=== PATIENT | female | born 1970 | race Caucasian/White ===

== ENCOUNTER 2019-03-10 16:16 | Observation (INO) ==
[2019-03-10 17:10] LABS: Basophils % 0.3 %; Eosinophils # 0.2 K/mcL (0.0-0.6); Eosinophils % 3.2 %; Hematocrit 18.6 % (35.3-44.9); Hemoglobin 6.2 g/dL (11.5-15.4); Immature Granulocytes % 0.6 % (0-4); Lymphocytes # 0.6 K/mcL (0.6-4.6); Lymphocytes % 8.6 %; Mean Corpuscular HGB Conc 33.3 g/dL (31.6-35.5); Mean Platelet Volume 9.7 fL (9.4-12.4); Monocytes # 0.5 K/mcL (0.0-1.3); Monocytes % 6.9 %; Neutrophils # 5.6 K/mcL (1.6-8.9); Platelet Count 130 K/mcL (140-400); Red Blood Count 1.59 M/mcL (3.82-4.97); Red Cell Distribution Width 15.9 % (11.5-14.5); Segmented Neutrophils % 80.4 %; White Blood Count 6.9 K/mcL (4.3-11.1)
[2019-03-10 17:29] LABS: Calcium 8.6 mg/dL (8.6-10.3); Potassium 3.3 mEq/L (3.5-5.1)
[2019-03-10 17:35] LABS: Macrocytosis Present (Not Present)
[2019-03-10 17:36] LABS: Platelet Estimate Slight Decrease (Normal)
[2019-03-10] MEDS ORDERED: 0.9 % Sodium Chloride 250 ML ONE (18:31)
[2019-03-10] MEDS ORDERED: Perit. Dialysis with Dex 2.5 % 12,000 ML PERITONEAL ONE (19:00)
[2019-03-10] MEDS ORDERED: Perit. Dialysis with Dex 2.5 % 6,000 ML PERITONEAL SCH (20:00)
[2019-03-11] MEDS ORDERED: Naloxone 0.4 MG/ML INJ IVP PRN (00:51)
[2019-03-11] MEDS ORDERED: Dextrose Gel 15 GM/37.5 ML TUBE PO PRN ×2 (01:01)
[2019-03-11] MEDS ORDERED: D5% in Water 1,000 ML IVC PRN (01:01)
[2019-03-11] MEDS ORDERED: *HR* Dextrose 50 % in Water (Syg) 50 ML SYRINGE IVP PRN (01:01)
[2019-03-11] MEDS ORDERED: Melatonin 3 MG TABLET PO PRN (01:14)
[2019-03-11 01:34] LABS: Hematocrit 20.9 % (35.3-44.9); Hemoglobin 7.1 g/dL (11.5-15.4); Mean Corpuscular Volume 108.9 fL (83.0-100.0); Mean Platelet Volume 9.4 fL (9.4-12.4); Platelet Count 128 K/mcL (140-400); Red Blood Count 1.92 M/mcL (3.82-4.97); Red Cell Distribution Width 22.5 % (11.5-14.5); White Blood Count 6.6 K/mcL (4.3-11.1)
[2019-03-11 03:03] LABS: Folate > 22.3 ng/mL (3.0-16.0); Vitamin B12 743 pg/mL (250-1100)
[2019-03-11 06:36] LABS: Hematocrit 24.5 % (35.3-44.9); Hemoglobin 8.2 g/dL (11.5-15.4); Mean Corpuscular HGB Conc 33.5 g/dL (31.6-35.5); Mean Corpuscular Hemoglobin 37.1 pg (28.0-33.3); Mean Corpuscular Volume 110.9 fL (83.0-100.0); Mean Platelet Volume 9.9 fL (9.4-12.4); Platelet Count 171 K/mcL (140-400); Red Blood Count 2.21 M/mcL (3.82-4.97); Red Cell Distribution Width 22.6 % (11.5-14.5); White Blood Count 9.4 K/mcL (4.3-11.1)
[2019-03-11 07:03] LABS: Albumin 3.8 g/dL (3.5-5.7); Albumin/Globulin Ratio 1.2 (1.1-2.2); Bilirubin,Total 0.5 mg/dL (0.3-1.0); Globulin 3.3 g/dL (2.4-3.5); Phosphorous 9.2 mg/dL (2.7-4.5); Potassium 3.5 mEq/L (3.5-5.1); Total Protein 7.1 g/dL (6.4-8.9)
[2019-03-11] MEDS ORDERED: Gentamicin Oint 15 GM TUBE TP SCH (09:00)
[2019-03-11] MEDS: Insulin LISPRO 300 UNITS/3 ML VIAL SQ SCH ×2 (09:05→12:57)
[2019-03-11 11:06] LABS: Retculocyte # 0.06 M/mcL (0.05-0.10); Reticulocyte % 3.1 % (1.6-2.8)
[2019-03-11 11:07] LABS: Immature Reticulocyte % 28.5 % (11.0-38.0)
[2019-03-11 11:19] LABS: % Iron Saturation 31 % (15-50); Iron 75 mcg/dL (50-170); Transferrin 172 mg/dL (203-362)
[2019-03-11 11:36] LABS: Ferritin 419 ng/mL (10-120)
[2019-03-11 16:02] VITALS: BP 160/90
[2019-03-11] MEDS ORDERED: Insulin LISPRO 300 UNITS/3 ML VIAL SQ SCH (21:00)
[2019-03-11] MEDS ORDERED: Insulin DETEMIR 100 UNIT/ML X5UNITS SQ SCH (21:00)
== END 2019-03-11 16:55 | disposition home or self-care (01) ==
LOC: EMEROOARM 16:16 → 2ANU 16:16
PROVIDERS: ADMIT Family Medicine; ATTEND Family Medicine

== ENCOUNTER 2019-05-24 16:36 | Inpatient (IN) ==
[2019-05-24] MEDS ORDERED: *HR* FentaNYL (PF) 100 MCG/2 ML VIAL IVP ONE ×3 (17:41→22:35)
[2019-05-24] MEDS ORDERED: Ondansetron 4 MG/2 ML VIAL IVP ONE ×2 (17:42→20:43)
[2019-05-24 17:55] LABS: Basophils % 0.3 %; Eosinophils # 0.1 K/mcL (0.0-0.6); Eosinophils % 1.1 %; Hematocrit 22.4 % (35.3-44.9); Hemoglobin 7.7 g/dL (11.5-15.4); Immature Granulocytes % 0.5 % (0-4); Lymphocytes # 0.7 K/mcL (0.6-4.6); Mean Corpuscular HGB Conc 34.4 g/dL (31.6-35.5); Mean Corpuscular Hemoglobin 36.7 pg (28.0-33.3); Monocytes # 0.5 K/mcL (0.0-1.3); Monocytes % 6.3 %; Neutrophils # 6.2 K/mcL (1.6-8.9); Platelet Count 158 K/mcL (140-400); Red Cell Distribution Width 16.2 % (11.5-14.5); Segmented Neutrophils % 82.8 %; White Blood Count 7.4 K/mcL (4.3-11.1)
[2019-05-24 17:56] LABS: Mean Corpuscular Volume 106.7 fL (83.0-100.0)
[2019-05-24 18:17] LABS: Calcium 7.8 mg/dL (8.6-10.3); Potassium 2.5 mEq/L (3.5-5.1)
[2019-05-24] MEDS ORDERED: Potassium Chloride Elixir 20 MEQ/15 ML UDC PO ONE ×2 (19:15→20:42)
[2019-05-24 19:59] LABS: Magnesium 1.7 mg/dL (1.6-2.6); Troponin I 0.08 ng/mL (< 0.04)
[2019-05-24] MEDS ORDERED: *HR* FentaNYL (PF) 100 MCG/2 ML VIAL ONE (20:35)
[2019-05-24] MEDS ORDERED: Potassium Chloride 40 MEQ, Lidocaine 1% 2 ML in 0.9 % Sodium Chloride 500 ML IVPB ONE (20:43)
[2019-05-24 21:47] LABS: Albumin 3.5 g/dL (3.5-5.7); Bilirubin,Direct 0.1 mg/dL (0.0-0.2); Bilirubin,Indirect 0.2 mg/dL (0.0-1.0); Bilirubin,Total 0.3 mg/dL (0.3-1.0); Globulin 3.6 g/dL (2.4-3.5); Total Protein 7.1 g/dL (6.4-8.9)
[2019-05-25] MEDS ORDERED: Naloxone 0.4 MG/ML INJ IVP PRN (00:09)
[2019-05-25] MEDS ORDERED: D5% in Water 1,000 ML IVC PRN (00:12)
[2019-05-25] MEDS ORDERED: Dextrose Gel 15 GM/37.5 ML TUBE PO PRN ×2 (00:12)
[2019-05-25] MEDS ORDERED: *HR* Dextrose 50 % in Water (Syg) 50 ML SYRINGE IVP PRN (00:12)
[2019-05-25] MEDS ORDERED: Acetaminophen 325 MG TABLET PO PRN (00:13)
[2019-05-25] MEDS ORDERED: 0.9 % Sodium Chloride 1,000 ML IVC SCH (00:15)
[2019-05-25] MEDS: Ondansetron ODT 4 MG TAB.RAPDIS SL PRN (00:38)
[2019-05-25 04:49] LABS: INR 1.3; Prothrombin Time 15.2 Seconds (9.4-12.1)
[2019-05-25 04:51] LABS: Basophils % 0.3 %; Eosinophils # 0.1 K/mcL (0.0-0.6); Eosinophils % 0.8 %; Hematocrit 21.3 % (35.3-44.9); Hemoglobin 6.9 g/dL (11.5-15.4); Immature Granulocytes % 0.4 % (0-4); Lymphocytes # 0.6 K/mcL (0.6-4.6); Lymphocytes % 7.7 %; Mean Corpuscular HGB Conc 32.4 g/dL (31.6-35.5); Mean Corpuscular Hemoglobin 35.2 pg (28.0-33.3); Mean Corpuscular Volume 108.7 fL (83.0-100.0); Mean Platelet Volume 10.1 fL (9.4-12.4); Monocytes # 0.5 K/mcL (0.0-1.3); Monocytes % 6.8 %; Neutrophils # 6.2 K/mcL (1.6-8.9); Platelet Count 110 K/mcL (140-400); Red Blood Count 1.96 M/mcL (3.82-4.97); Red Cell Distribution Width 18.6 % (11.5-14.5); White Blood Count 7.4 K/mcL (4.3-11.1)
[2019-05-25 05:11] LABS: Calcium 7.4 mg/dL (8.6-10.3); Magnesium 2.1 mg/dL (1.6-2.6); Phosphorous 5.8 mg/dL (2.7-4.5); Potassium 3.3 mEq/L (3.5-5.1)
[2019-05-25] MEDS: Insulin LISPRO 300 UNITS/3 ML VIAL SQ SCH ×3 (06:09→17:25)
[2019-05-25] MEDS ORDERED: 0.9 % Sodium Chloride 250 ML ONE ×2 (06:30→08:25)
[2019-05-25] MEDS ORDERED: Multivit/Ca/Min/Fe/FA 1 TAB TABLET PO SCH (09:00)
[2019-05-25] MEDS ORDERED: Aspirin Enteric Coated 81 MG Tablet PO SCH (09:00)
[2019-05-25] MEDS: Renal Vitamin 1 CAP CAPSULE PO SCH (11:36)
[2019-05-25] MEDS: Acetaminophen 325 MG TABLET PO PRN (14:35)
[2019-05-25] MEDS: Pantoprazole 40 MG VIAL IVP SCH (17:25)
[2019-05-25] MEDS ORDERED: Perit. Dialysis with Dex 1.5 % 12,000 ML PERITONEAL ONE (19:00)
[2019-05-25] MEDS ORDERED: Potassium Chloride Elixir 20 MEQ/15 ML UDC PO ONE (19:26)
[2019-05-25 20:13] LABS: Hematocrit 24.6 % (35.3-44.9); Hemoglobin 8.4 g/dL (11.5-15.4)
[2019-05-26] MEDS: Insulin LISPRO 300 UNITS/3 ML VIAL SQ SCH ×5 (01:58→21:12)
[2019-05-26 04:50] LABS: Hemoglobin 7.6 g/dL (11.5-15.4); Mean Corpuscular Hemoglobin 34.9 pg (28.0-33.3); Mean Corpuscular Volume 105.5 fL (83.0-100.0); Mean Platelet Volume 10.8 fL (9.4-12.4); Platelet Count 126 K/mcL (140-400); Red Blood Count 2.18 M/mcL (3.82-4.97); Red Cell Distribution Width 22.5 % (11.5-14.5); White Blood Count 9.6 K/mcL (4.3-11.1)
[2019-05-26 05:08] LABS: Calcium 7.6 mg/dL (8.6-10.3); Potassium 3.4 mEq/L (3.5-5.1)
[2019-05-26] MEDS: Pantoprazole 40 MG VIAL IVP SCH ×2 (05:53→16:35)
[2019-05-26] MEDS: Gentamicin Oint 15 GM TUBE TP SCH (08:46)
[2019-05-26] MEDS: Renal Vitamin 1 CAP CAPSULE PO SCH (08:46)
[2019-05-26 11:09] LABS: Hematocrit 21.9 % (35.3-44.9); Hemoglobin 7.4 g/dL (11.5-15.4)
[2019-05-26] MEDS ORDERED: 0.9 % Sodium Chloride 250 ML ONE (13:04)
[2019-05-26] MEDS: Acetaminophen 325 MG TABLET PO PRN ×2 (13:15→19:42)
[2019-05-26 17:42] LABS: Hematocrit 25.6 % (35.3-44.9); Hemoglobin 8.9 g/dL (11.5-15.4)
[2019-05-26] MEDS ORDERED: Perit. Dialysis with Dex 1.5 % 12,000 ML PERITONEAL ONE (19:00)
[2019-05-27] MEDS: Acetaminophen 325 MG TABLET PO PRN (05:30)
[2019-05-27] MEDS: Pantoprazole 40 MG VIAL IVP SCH ×2 (05:30→16:57)
[2019-05-27 05:46] LABS: Hematocrit 24.5 % (35.3-44.9); Hemoglobin 8.2 g/dL (11.5-15.4); Immature Platelets 3.3 % (1.1-6.1); Mean Corpuscular HGB Conc 33.5 g/dL (31.6-35.5); Mean Corpuscular Hemoglobin 33.7 pg (28.0-33.3); Mean Corpuscular Volume 100.8 fL (83.0-100.0); Mean Platelet Volume 9.7 fL (9.4-12.4); Red Blood Count 2.43 M/mcL (3.82-4.97); Red Cell Distribution Width 21.2 % (11.5-14.5); White Blood Count 5.6 K/mcL (4.3-11.1)
[2019-05-27 06:11] LABS: Calcium 7.6 mg/dL (8.6-10.3); Potassium 3.6 mEq/L (3.5-5.1)
[2019-05-27] MEDS: Insulin LISPRO 300 UNITS/3 ML VIAL SQ SCH ×4 (07:24→21:42)
[2019-05-27] MEDS: Renal Vitamin 1 CAP CAPSULE PO SCH (08:23)
[2019-05-27] MEDS ORDERED: 0.9 % Sodium Chloride 250 ML IVC ONE (08:49)
[2019-05-27] MEDS: Gentamicin Oint 15 GM TUBE TP SCH (08:53)
[2019-05-27] MEDS ORDERED: 0.9 % Sodium Chloride 1,000 ML IVC SCH (12:00)
[2019-05-27 14:43] LABS: Hemoglobin 8.7 g/dL (11.5-15.4)
[2019-05-27] MEDS ORDERED: Perit. Dialysis with Dex 1.5 % 12,000 ML PERITONEAL ONE (19:00)
[2019-05-27 19:23] LABS: Hematocrit 25.5 % (35.3-44.9); Hemoglobin 8.3 g/dL (11.5-15.4)
[2019-05-27] MEDS: *HR* Promethazine 25 MG/ML VIAL IVP PRN (22:59)
[2019-05-28] MEDS: Acetaminophen 325 MG TABLET PO PRN ×2 (03:43→14:44)
[2019-05-28 04:41] LABS: Hematocrit 21.2 % (35.3-44.9); Hemoglobin 7.1 g/dL (11.5-15.4); Mean Corpuscular HGB Conc 33.5 g/dL (31.6-35.5); Mean Corpuscular Hemoglobin 34.3 pg (28.0-33.3); Mean Corpuscular Volume 102.4 fL (83.0-100.0); Mean Platelet Volume 10.3 fL (9.4-12.4); Platelet Count 131 K/mcL (140-400); Red Blood Count 2.07 M/mcL (3.82-4.97); Red Cell Distribution Width 20.3 % (11.5-14.5); White Blood Count 7.3 K/mcL (4.3-11.1)
[2019-05-28 05:00] LABS: Calcium 6.1 mg/dL (8.6-10.3); Potassium 2.9 mEq/L (3.5-5.1)
[2019-05-28] MEDS: Pantoprazole 40 MG VIAL IVP SCH ×2 (05:08→16:48)
[2019-05-28] MEDS: Renal Vitamin 1 CAP CAPSULE PO SCH (07:27)
[2019-05-28] MEDS: Gentamicin Oint 15 GM TUBE TP SCH (07:27)
[2019-05-28] MEDS ORDERED: Furosemide 20 MG/2 ML VIAL IVP ONE ×2 (07:35→14:42)
[2019-05-28] MEDS ORDERED: 0.9 % Sodium Chloride 250 ML IVC SCH (07:45)
[2019-05-28] MEDS ORDERED: Potassium Chloride Elixir 20 MEQ/15 ML UDC PO SCH (07:45)
[2019-05-28 08:32] LABS: Hemoglobin 8.4 g/dL (11.5-15.4)
[2019-05-28] MEDS: Insulin LISPRO 300 UNITS/3 ML VIAL SQ SCH ×4 (08:49→21:04)
[2019-05-28] MEDS ORDERED: 0.9 % Sodium Chloride 250 ML ONE (11:09)
[2019-05-28] MEDS ORDERED: *HR* Propofol 200 MG/20 ML VIAL IVP ONE (13:08)
[2019-05-28] MEDS ORDERED: Lidocaine -MPF 2% 2 ML VIAL ONE (13:08)
[2019-05-28 15:21] LABS: Hematocrit 28.2 % (35.3-44.9); Hemoglobin 9.5 g/dL (11.5-15.4)
[2019-05-28 21:07] LABS: Hematocrit 27.5 % (35.3-44.9); Hemoglobin 9.4 g/dL (11.5-15.4)
[2019-05-29] MEDS: Pantoprazole 40 MG VIAL IVP SCH ×2 (06:28→17:32)
[2019-05-29] MEDS: Gentamicin Oint 15 GM TUBE TP SCH (07:09)
[2019-05-29] MEDS: Renal Vitamin 1 CAP CAPSULE PO SCH (07:09)
[2019-05-29 07:13] LABS: Immature Reticulocyte % 23.2 % (11.0-38.0); Retculocyte # 0.08 M/mcL (0.05-0.10)
[2019-05-29 07:16] LABS: VBG Ionized Calcium 0.93 mmol/L (1.15-1.35)
[2019-05-29 07:34] LABS: % Iron Saturation 40 % (15-50); Iron 55 mcg/dL (50-170); Transferrin 99 mg/dL (203-362)
[2019-05-29 07:41] LABS: Albumin 2.7 g/dL (3.5-5.7); Calcium 7.6 mg/dL (8.6-10.3); Phosphorous 7.2 mg/dL (2.7-4.5); Potassium 3.8 mEq/L (3.5-5.1)
[2019-05-29] MEDS ORDERED: Calcium Gluconate 1gm/50mL 1 GM/50 ML BAG IVPB ONE (07:42)
[2019-05-29] MEDS: Insulin LISPRO 300 UNITS/3 ML VIAL SQ SCH ×4 (07:49→21:32)
[2019-05-29 07:53] LABS: Ferritin 502 ng/mL (10-120)
[2019-05-29 08:10] LABS: Folate > 22.3 ng/mL (3.0-16.0); Vitamin B12 > 1500 pg/mL (250-1100)
[2019-05-29 08:22] LABS: Hematocrit 30.2 % (35.3-44.9); Hemoglobin 9.6 g/dL (11.5-15.4); Mean Corpuscular HGB Conc 31.8 g/dL (31.6-35.5); Mean Corpuscular Hemoglobin 32.9 pg (28.0-33.3); Mean Corpuscular Volume 103.4 fL (83.0-100.0); Mean Platelet Volume 10.2 fL (9.4-12.4); Platelet Count 106 K/mcL (140-400); Red Blood Count 2.92 M/mcL (3.82-4.97); Red Cell Distribution Width 22.2 % (11.5-14.5); White Blood Count 5.5 K/mcL (4.3-11.1)
[2019-05-29 08:42] LABS: Calcium 7.6 mg/dL (8.6-10.3); Potassium 3.8 mEq/L (3.5-5.1)
[2019-05-30 04:44] LABS: Hematocrit 26.2 % (35.3-44.9); Hemoglobin 8.7 g/dL (11.5-15.4); Mean Corpuscular HGB Conc 33.2 g/dL (31.6-35.5); Mean Corpuscular Hemoglobin 33.2 pg (28.0-33.3); Mean Platelet Volume 9.5 fL (9.4-12.4); Platelet Count 101 K/mcL (140-400); Red Blood Count 2.62 M/mcL (3.82-4.97); Red Cell Distribution Width 21.7 % (11.5-14.5); White Blood Count 4.3 K/mcL (4.3-11.1)
[2019-05-30 05:06] LABS: Albumin 2.5 g/dL (3.5-5.7); Calcium 7.7 mg/dL (8.6-10.3); Phosphorous 7.5 mg/dL (2.7-4.5); Potassium 3.7 mEq/L (3.5-5.1)
[2019-05-30] MEDS: Pantoprazole 40 MG VIAL IVP SCH (06:22)
[2019-05-30] MEDS: Renal Vitamin 1 CAP CAPSULE PO SCH (08:06)
[2019-05-30] MEDS: Insulin LISPRO 300 UNITS/3 ML VIAL SQ SCH ×4 (08:56→23:35)
[2019-05-30] MEDS: Gentamicin Oint 15 GM TUBE TP SCH (08:57)
[2019-05-30] MEDS: Ondansetron ODT 4 MG TAB.RAPDIS SL PRN (12:31)
[2019-05-30] MEDS: Perit. Dialysis with Dex 1.5 % 12,000 ML PERITONEAL ONE ×2 (18:13→18:14)
[2019-05-31 05:13] LABS: Hematocrit 25.3 % (35.3-44.9); Hemoglobin 8.3 g/dL (11.5-15.4); Mean Corpuscular HGB Conc 32.8 g/dL (31.6-35.5); Mean Corpuscular Hemoglobin 33.9 pg (28.0-33.3); Mean Corpuscular Volume 103.3 fL (83.0-100.0); Mean Platelet Volume 10.2 fL (9.4-12.4); Platelet Count 110 K/mcL (140-400); Red Blood Count 2.45 M/mcL (3.82-4.97); Red Cell Distribution Width 21.1 % (11.5-14.5)
[2019-05-31] MEDS: Pantoprazole 40 MG VIAL IVP SCH (05:29)
[2019-05-31 05:34] LABS: Albumin 2.5 g/dL (3.5-5.7); Calcium 7.5 mg/dL (8.6-10.3); Phosphorous 6.6 mg/dL (2.7-4.5); Potassium 3.5 mEq/L (3.5-5.1)
[2019-05-31] MEDS: Insulin LISPRO 300 UNITS/3 ML VIAL SQ SCH ×4 (07:03→23:41)
[2019-05-31] MEDS: Renal Vitamin 1 CAP CAPSULE PO SCH (07:18)
[2019-05-31] MEDS: Gentamicin Oint 15 GM TUBE TP SCH (07:20)
[2019-05-31] MEDS: Ondansetron ODT 4 MG TAB.RAPDIS SL PRN (17:39)
[2019-05-31] MEDS: Perit. Dialysis with Dex 1.5 % 12,000 ML PERITONEAL ONE (18:26)
[2019-05-31] MEDS ORDERED: Perit. Dialysis with Dex 1.5 % 12,000 ML PERITONEAL ONE (19:00)
[2019-06-01] MEDS: Pantoprazole 40 MG VIAL IVP SCH (05:38)
[2019-06-01 06:40] LABS: Albumin 2.7 g/dL (3.5-5.7); Calcium 7.8 mg/dL (8.6-10.3); Phosphorous 6.4 mg/dL (2.7-4.5); Potassium 3.9 mEq/L (3.5-5.1)
[2019-06-01 06:50] LABS: Hematocrit 29.7 % (35.3-44.9); Hemoglobin 9.8 g/dL (11.5-15.4); Mean Corpuscular Hemoglobin 32.9 pg (28.0-33.3); Mean Corpuscular Volume 99.7 fL (83.0-100.0); Mean Platelet Volume 10.9 fL (9.4-12.4); Platelet Count 133 K/mcL (140-400); Red Blood Count 2.98 M/mcL (3.82-4.97); Red Cell Distribution Width 20.7 % (11.5-14.5); White Blood Count 5.8 K/mcL (4.3-11.1)
[2019-06-01] MEDS: Renal Vitamin 1 CAP CAPSULE PO SCH (07:33)
[2019-06-01] MEDS: Insulin LISPRO 300 UNITS/3 ML VIAL SQ SCH ×4 (07:43→20:21)
[2019-06-01] MEDS: Gentamicin Oint 15 GM TUBE TP SCH (08:48)
[2019-06-01] MEDS: *HR* Promethazine 25 MG/ML VIAL IVP PRN (12:03)
[2019-06-01] MEDS: Metoclopramide 10 MG/2 ML VIAL IVP PRN (16:37)
[2019-06-01] MEDS: Ondansetron ODT 4 MG TAB.RAPDIS SL PRN (23:43)
[2019-06-02 05:10] LABS: Basophils % 0.4 %; Eosinophils # 0.1 K/mcL (0.0-0.6); Eosinophils % 2.8 %; Hematocrit 26.5 % (35.3-44.9); Hemoglobin 8.5 g/dL (11.5-15.4); Immature Granulocytes % 0.4 % (0-4); Lymphocytes # 0.7 K/mcL (0.6-4.6); Mean Corpuscular HGB Conc 32.1 g/dL (31.6-35.5); Mean Corpuscular Hemoglobin 33.5 pg (28.0-33.3); Mean Corpuscular Volume 104.3 fL (83.0-100.0); Monocytes # 0.3 K/mcL (0.0-1.3); Monocytes % 5.7 %; Neutrophils # 3.6 K/mcL (1.6-8.9); Platelet Count 123 K/mcL (140-400); Red Blood Count 2.54 M/mcL (3.82-4.97); Red Cell Distribution Width 20.6 % (11.5-14.5); Segmented Neutrophils % 76.7 %; White Blood Count 4.7 K/mcL (4.3-11.1)
[2019-06-02 05:30] LABS: Albumin 2.6 g/dL (3.5-5.7); Calcium 7.7 mg/dL (8.6-10.3); Potassium 3.5 mEq/L (3.5-5.1)
[2019-06-02] MEDS: Pantoprazole 40 MG VIAL IVP SCH (06:02)
[2019-06-02] MEDS: Insulin LISPRO 300 UNITS/3 ML VIAL SQ SCH ×4 (08:27→21:42)
[2019-06-02] MEDS: Gentamicin Oint 15 GM TUBE TP SCH (08:28)
[2019-06-02] MEDS: Renal Vitamin 1 CAP CAPSULE PO SCH (08:28)
[2019-06-02] MEDS: 0.9 % Sodium Chloride 1,000 ML IVC SCH (11:59)
[2019-06-02] MEDS: Ondansetron ODT 4 MG TAB.RAPDIS SL PRN (17:53)
[2019-06-02] MEDS: Metoclopramide 10 MG/2 ML VIAL IVP PRN (19:36)
[2019-06-02] MEDS ORDERED: Ondansetron 4 MG/2 ML VIAL IVP ONE (23:43)
[2019-06-03 05:58] LABS: Basophils % 0.4 %; Eosinophils # 0.2 K/mcL (0.0-0.6); Eosinophils % 3.4 %; Hematocrit 27.3 % (35.3-44.9); Hemoglobin 8.6 g/dL (11.5-15.4); Immature Granulocytes % 0.2 % (0-4); Lymphocytes # 0.5 K/mcL (0.6-4.6); Mean Corpuscular HGB Conc 31.5 g/dL (31.6-35.5); Mean Corpuscular Volume 104.6 fL (83.0-100.0); Mean Platelet Volume 9.6 fL (9.4-12.4); Monocytes # 0.3 K/mcL (0.0-1.3); Monocytes % 6.4 %; Neutrophils # 3.8 K/mcL (1.6-8.9); Platelet Count 113 K/mcL (140-400); Red Blood Count 2.61 M/mcL (3.82-4.97); Red Cell Distribution Width 20.4 % (11.5-14.5); Segmented Neutrophils % 79.6 %; White Blood Count 4.7 K/mcL (4.3-11.1)
[2019-06-03] MEDS: Pantoprazole 40 MG VIAL IVP SCH (06:05)
[2019-06-03 06:19] LABS: Calcium 7.7 mg/dL (8.6-10.3); Magnesium 1.9 mg/dL (1.6-2.6); Phosphorous 6.7 mg/dL (2.7-4.5); Potassium 3.6 mEq/L (3.5-5.1)
[2019-06-03] MEDS: Insulin LISPRO 300 UNITS/3 ML VIAL SQ SCH ×4 (08:16→21:04)
[2019-06-03] MEDS: 0.9 % Sodium Chloride 1,000 ML IVC SCH (08:35)
[2019-06-03] MEDS: Renal Vitamin 1 CAP CAPSULE PO SCH (08:36)
[2019-06-03] MEDS: Gentamicin Oint 15 GM TUBE TP SCH (08:36)
[2019-06-03] MEDS: Ondansetron ODT 4 MG TAB.RAPDIS SL PRN ×2 (14:09→23:03)
[2019-06-03] MEDS: Metoclopramide 10 MG/2 ML VIAL IVP SCH ×2 (17:00→20:59)
[2019-06-03] MEDS ORDERED: Perit. Dialysis with Dex 1.5 % 6,000 ML PERITONEAL ONE (19:00)
[2019-06-03] MEDS ORDERED: Perit. Dialysis with Dex 2.5 % 6,000 ML PERITONEAL ONE (19:00)
[2019-06-04] MEDS: Pantoprazole 40 MG VIAL IVP SCH (06:10)
[2019-06-04] MEDS: Gentamicin Oint 15 GM TUBE TP SCH (07:39)
[2019-06-04] MEDS: Metoclopramide 10 MG/2 ML VIAL IVP SCH ×4 (07:39→21:25)
[2019-06-04] MEDS: Renal Vitamin 1 CAP CAPSULE PO SCH (07:39)
[2019-06-04] MEDS: Insulin LISPRO 300 UNITS/3 ML VIAL SQ SCH ×4 (07:40→21:13)
[2019-06-04 08:50] LABS: Calcium 7.7 mg/dL (8.6-10.3); Magnesium 1.8 mg/dL (1.6-2.6); Phosphorous 5.8 mg/dL (2.7-4.5); Potassium 3.3 mEq/L (3.5-5.1)
[2019-06-04] MEDS: Ondansetron ODT 4 MG TAB.RAPDIS SL PRN (12:00)
[2019-06-04] MEDS ORDERED: E-Z-HD (BARIUM SULF) SUSPENSION PO ONE (15:32)
[2019-06-04] MEDS ORDERED: Perit. Dialysis with Dex 2.5 % 6,000 ML PERITONEAL ONE (19:00)
[2019-06-04] MEDS ORDERED: Perit. Dialysis with Dex 1.5 % 6,000 ML PERITONEAL ONE (19:00)
[2019-06-04] MEDS ORDERED: Scopolamine Patch 1.5 MG PATCH.TD72 TD ONE (20:04)
[2019-06-05] MEDS: Ondansetron ODT 4 MG TAB.RAPDIS SL PRN
[2019-06-05 02:38] LABS: Hematocrit 25.4 % (35.3-44.9); Mean Corpuscular HGB Conc 31.5 g/dL (31.6-35.5); Mean Corpuscular Hemoglobin 32.9 pg (28.0-33.3); Mean Corpuscular Volume 104.5 fL (83.0-100.0); Mean Platelet Volume 10.1 fL (9.4-12.4); Platelet Count 108 K/mcL (140-400); Red Blood Count 2.43 M/mcL (3.82-4.97); Red Cell Distribution Width 20.5 % (11.5-14.5); White Blood Count 4.3 K/mcL (4.3-11.1)
[2019-06-05 02:54] LABS: Calcium 7.6 mg/dL (8.6-10.3)
[2019-06-05] MEDS: Pantoprazole 40 MG VIAL IVP SCH (06:47)
[2019-06-05] MEDS: Insulin LISPRO 300 UNITS/3 ML VIAL SQ SCH (08:24)
[2019-06-05] MEDS: Renal Vitamin 1 CAP CAPSULE PO SCH (08:26)
[2019-06-05] MEDS: Metoclopramide 10 MG/2 ML VIAL IVP SCH (08:26)
[2019-06-05] MEDS: Gentamicin Oint 15 GM TUBE TP SCH (08:26)
[2019-06-05] MEDS ORDERED: Furosemide 40 MG TABLET PO SCH (09:00)
[2019-06-05 11:49] VITALS: BP 148/83
== END 2019-06-05 13:00 | disposition home or self-care (01) | DRG 438 ==
LOC: 2ANU 16:36 → EMEROOARM 16:36 → SUATTDRO 22:18 → 2ANU 23:07 → SUATTDRO 05-25 12:53
PROVIDERS: ADMIT Internal Medicine; ATTEND Internal Medicine
PROC: ENDOEBX (2019-05-28 13:00)

== ENCOUNTER 2019-06-15 19:07 | Inpatient (IN) ==
[2019-06-15] MEDS ORDERED: Isovue-370 500 ML BOTTLE IVP ONE (19:35)
[2019-06-15] MEDS ORDERED: *HR* FentaNYL (PF) 100 MCG/2 ML VIAL IVP ONE ×2 (19:52→21:53)
[2019-06-15] MEDS ORDERED: Ondansetron 4 MG/2 ML VIAL IVP STA (19:52)
[2019-06-15 19:56] LABS: Basophils % 0.2 %; Eosinophils # 0.2 K/mcL (0.0-0.6); Eosinophils % 3.4 %; Hematocrit 21.2 % (35.3-44.9); Hemoglobin 6.9 g/dL (11.5-15.4); Immature Granulocytes % 0.5 % (0-4); Lymphocytes # 0.5 K/mcL (0.6-4.6); Lymphocytes % 9.1 %; Mean Corpuscular HGB Conc 32.5 g/dL (31.6-35.5); Mean Corpuscular Hemoglobin 33.8 pg (28.0-33.3); Mean Corpuscular Volume 103.9 fL (83.0-100.0); Mean Platelet Volume 10.9 fL (9.4-12.4); Monocytes # 0.2 K/mcL (0.0-1.3); Monocytes % 3.6 %; Neutrophils # 4.7 K/mcL (1.6-8.9); Platelet Count 116 K/mcL (140-400); Red Blood Count 2.04 M/mcL (3.82-4.97); Segmented Neutrophils % 83.2 %; White Blood Count 5.6 K/mcL (4.3-11.1)
[2019-06-15] MEDS ORDERED: 0.9 % Sodium Chloride 1,000 ML ONE (20:03)
[2019-06-15 20:14] LABS: Albumin 2.9 g/dL (3.5-5.7); Albumin/Globulin Ratio 0.9 (1.1-2.2); Bilirubin,Direct 0.2 mg/dL (0.0-0.2); Bilirubin,Indirect 0.6 mg/dL (0.0-1.0); Bilirubin,Total 0.8 mg/dL (0.3-1.0); Calcium 7.9 mg/dL (8.6-10.3); Globulin 3.2 g/dL (2.4-3.5); Magnesium 1.7 mg/dL (1.6-2.6); Potassium 3.7 mEq/L (3.5-5.1); Total Protein 6.1 g/dL (6.4-8.9)
[2019-06-15] MEDS ORDERED: Ondansetron 4 MG/2 ML VIAL IVP ONE (21:53)
[2019-06-15] MEDS ORDERED: 0.9 % Sodium Chloride 1,000 ML IVC SCH (22:15)
[2019-06-15] MEDS ORDERED: Dextrose Gel 15 GM/37.5 ML TUBE PO PRN ×2 (23:46)
[2019-06-15] MEDS ORDERED: Naloxone 0.4 MG/ML INJ IVP PRN (23:46)
[2019-06-15] MEDS ORDERED: D5% in Water 1,000 ML IVC PRN (23:46)
[2019-06-15] MEDS ORDERED: *HR* Dextrose 50 % in Water (Syg) 50 ML SYRINGE IVP PRN (23:46)
[2019-06-16] MEDS: Insulin LISPRO 300 UNITS/3 ML VIAL SQ SCH ×4 (01:25→19:21)
[2019-06-16] MEDS ORDERED: 0.9 % Sodium Chloride 250 ML ONE (01:31)
[2019-06-16] MEDS: Ondansetron 4 MG/2 ML VIAL IVP PRN (05:50)
[2019-06-16 05:53] LABS: Hematocrit 23.4 % (35.3-44.9); Mean Platelet Volume 11.1 fL (9.4-12.4); Monocytes % 6.2 %
[2019-06-16 05:55] LABS: Basophils % 0.2 %; Eosinophils # 0.2 K/mcL (0.0-0.6); Eosinophils % 4.9 %; Hemoglobin 7.7 g/dL (11.5-15.4); Immature Granulocytes % 0.6 % (0-4); Immature Platelets 4.4 % (1.1-6.1); Lymphocytes # 0.7 K/mcL (0.6-4.6); Lymphocytes % 13.4 %; Mean Corpuscular HGB Conc 32.9 g/dL (31.6-35.5); Mean Corpuscular Hemoglobin 32.4 pg (28.0-33.3); Mean Corpuscular Volume 98.3 fL (83.0-100.0); Monocytes # 0.3 K/mcL (0.0-1.3); Nucleated Red Blood Cells 0.4 /100 WBC (0); Red Blood Count 2.38 M/mcL (3.82-4.97); Red Cell Distribution Width 21.8 % (11.5-14.5); Segmented Neutrophils % 74.7 %; White Blood Count 4.9 K/mcL (4.3-11.1)
[2019-06-16 05:56] LABS: INR 1.4; Prothrombin Time 16.3 Seconds (9.4-12.1)
[2019-06-16 06:08] LABS: Calcium 7.6 mg/dL (8.6-10.3); Phosphorous 4.5 mg/dL (2.7-4.5); Potassium 3.7 mEq/L (3.5-5.1)
[2019-06-16 06:21] LABS: Neutrophils # 3.7 K/mcL (1.6-8.9); Platelet Count 71 K/mcL (140-400)
[2019-06-16 06:22] LABS: Platelet Estimate Decreased (Normal)
[2019-06-16] MEDS ORDERED: Pantoprazole 40 MG VIAL IVP SCH ×2 (06:30→21:00)
[2019-06-16 07:32] LABS: Estimated Average Glucose 137 mg/dl
[2019-06-16] MEDS ORDERED: 0.9 % Sodium Chloride 1,000 ML IVC SCH (08:00)
[2019-06-16] MEDS: Valsartan 160 MG TABLET PO SCH ×2 (08:31→08:59)
[2019-06-16] MEDS: Isosorbide MONOnitrate (24 HR) 30 MG TAB.ER.24H PO SCH ×2 (08:32→08:59)
[2019-06-16] MEDS: carvediloL 6.25 MG TABLET PO SCH ×3 (08:32→22:16)
[2019-06-16] MEDS: Renal Vitamin 1 CAP CAPSULE PO SCH ×2 (08:32→08:59)
[2019-06-16] MEDS: Metoclopramide 10 MG/2 ML VIAL IVP PRN ×2 (11:25→17:27)
[2019-06-16] MEDS: *HR* FentaNYL PATCH 25 MCG PATCH TD SCH (11:25)
[2019-06-17] MEDS: Insulin LISPRO 300 UNITS/3 ML VIAL SQ SCH ×4 (00:53→17:57)
[2019-06-17 05:42] LABS: Hematocrit 22.7 % (35.3-44.9); Mean Platelet Volume 11.1 fL (9.4-12.4); Red Cell Distribution Width 21.9 % (11.5-14.5)
[2019-06-17 05:43] LABS: Basophils % 0.5 %; Eosinophils # 0.3 K/mcL (0.0-0.6); Eosinophils % 6.8 %; Hemoglobin 7.3 g/dL (11.5-15.4); Immature Granulocytes % 0.5 % (0-4); Immature Platelets 5.2 % (1.1-6.1); Lymphocytes # 0.4 K/mcL (0.6-4.6); Lymphocytes % 9.8 %; Mean Corpuscular HGB Conc 32.2 g/dL (31.6-35.5); Mean Corpuscular Hemoglobin 32.4 pg (28.0-33.3); Mean Corpuscular Volume 100.9 fL (83.0-100.0); Monocytes # 0.2 K/mcL (0.0-1.3); Monocytes % 5.2 %; Neutrophils # 3.4 K/mcL (1.6-8.9); Red Blood Count 2.25 M/mcL (3.82-4.97); Segmented Neutrophils % 77.2 %; White Blood Count 4.4 K/mcL (4.3-11.1)
[2019-06-17 05:51] LABS: Platelet Count 65 K/mcL (140-400)
[2019-06-17 05:59] LABS: Calcium 7.6 mg/dL (8.6-10.3); Potassium 3.9 mEq/L (3.5-5.1)
[2019-06-17] MEDS: carvediloL 6.25 MG TABLET PO SCH ×2 (08:26→17:03)
[2019-06-17] MEDS: Renal Vitamin 1 CAP CAPSULE PO SCH (08:26)
[2019-06-17] MEDS: Valsartan 160 MG TABLET PO SCH (08:26)
[2019-06-17] MEDS: Isosorbide MONOnitrate (24 HR) 30 MG TAB.ER.24H PO SCH (08:26)
[2019-06-17] MEDS: Ondansetron 4 MG/2 ML VIAL IVP PRN (09:06)
[2019-06-17] MEDS ORDERED: 0.9 % Sodium Chloride 250 ML IVC SCH (11:15)
[2019-06-17] MEDS ORDERED: 0.9 % Sodium Chloride 250 ML IVC PRN (11:24)
[2019-06-17] MEDS ORDERED: 0.9 % Sodium Chloride 1,000 ML PRIME SCH (11:30)
[2019-06-17] MEDS: Metoclopramide 10 MG/2 ML VIAL IVP PRN ×2 (14:26→19:57)
[2019-06-17] MEDS: Pantoprazole 40 MG VIAL IVP SCH (17:58)
[2019-06-18] MEDS: Ondansetron 4 MG/2 ML VIAL IVP PRN (00:55)
[2019-06-18] MEDS: Insulin LISPRO 300 UNITS/3 ML VIAL SQ SCH ×4 (01:21→18:22)
[2019-06-18] MEDS: Metoclopramide 10 MG/2 ML VIAL IVP PRN ×2 (03:24→11:41)
[2019-06-18 04:14] LABS: Basophils % 0.4 %
[2019-06-18 04:16] LABS: Eosinophils # 0.3 K/mcL (0.0-0.6); Eosinophils % 5.6 %; Hematocrit 28.3 % (35.3-44.9); Hemoglobin 9.1 g/dL (11.5-15.4); Immature Granulocytes % 0.6 % (0-4); Immature Platelets 3.1 % (1.1-6.1); Lymphocytes # 0.4 K/mcL (0.6-4.6); Lymphocytes % 8.1 %; Mean Corpuscular HGB Conc 32.2 g/dL (31.6-35.5); Mean Corpuscular Hemoglobin 32.6 pg (28.0-33.3); Mean Corpuscular Volume 101.4 fL (83.0-100.0); Mean Platelet Volume 10.8 fL (9.4-12.4); Monocytes # 0.3 K/mcL (0.0-1.3); Monocytes % 5.2 %; Red Blood Count 2.79 M/mcL (3.82-4.97); Red Cell Distribution Width 20.8 % (11.5-14.5); Segmented Neutrophils % 80.1 %; White Blood Count 4.8 K/mcL (4.3-11.1)
[2019-06-18 04:21] LABS: Neutrophils # 3.8 K/mcL (1.6-8.9); Platelet Count 90 K/mcL (140-400)
[2019-06-18 04:28] LABS: Calcium 7.9 mg/dL (8.6-10.3); Phosphorous 3.9 mg/dL (2.7-4.5); Potassium 3.9 mEq/L (3.5-5.1)
[2019-06-18 04:44] LABS: Thyroid Stimulating Hormone 10.343 mcIU/mL (0.340-5.600)
[2019-06-18] MEDS ORDERED: 0.9 % Sodium Chloride 250 ML IVC PRN (06:36)
[2019-06-18] MEDS: Pantoprazole 40 MG VIAL IVP SCH ×2 (06:45→18:23)
[2019-06-18] MEDS: carvediloL 6.25 MG TABLET PO SCH ×2 (08:52→18:23)
[2019-06-18] MEDS: Valsartan 160 MG TABLET PO SCH (08:52)
[2019-06-18] MEDS: Isosorbide MONOnitrate (24 HR) 30 MG TAB.ER.24H PO SCH (08:53)
[2019-06-18] MEDS: Renal Vitamin 1 CAP CAPSULE PO SCH (08:53)
[2019-06-18] MEDS ORDERED: Scopolamine Patch 1.5 MG PATCH.TD72 TD SCH (11:00)
[2019-06-19] MEDS: Metoclopramide 10 MG/2 ML VIAL IVP PRN (02:11)
[2019-06-19] MEDS: Insulin LISPRO 300 UNITS/3 ML VIAL SQ SCH ×3 (03:43→13:00)
[2019-06-19] MEDS: Pantoprazole 40 MG VIAL IVP SCH ×2 (05:34→16:54)
[2019-06-19 05:53] LABS: Hemoglobin 8.8 g/dL (11.5-15.4); Immature Granulocytes % 0.6 % (0-4)
[2019-06-19 05:54] LABS: Basophils % 0.6 %; Eosinophils # 0.2 K/mcL (0.0-0.6); Eosinophils % 6.2 %; Hematocrit 26.1 % (35.3-44.9); Immature Platelets 4.7 % (1.1-6.1); Lymphocytes # 0.5 K/mcL (0.6-4.6); Lymphocytes % 14.7 %; Mean Corpuscular HGB Conc 33.7 g/dL (31.6-35.5); Mean Corpuscular Hemoglobin 32.6 pg (28.0-33.3); Mean Corpuscular Volume 96.7 fL (83.0-100.0); Mean Platelet Volume 10.9 fL (9.4-12.4); Monocytes # 0.2 K/mcL (0.0-1.3); Monocytes % 6.5 %; Neutrophils # 2.4 K/mcL (1.6-8.9); Red Cell Distribution Width 20.2 % (11.5-14.5); Segmented Neutrophils % 71.4 %; White Blood Count 3.4 K/mcL (4.3-11.1)
[2019-06-19 05:58] LABS: Platelet Count 77 K/mcL (140-400)
[2019-06-19 06:22] LABS: Calcium 7.6 mg/dL (8.6-10.3); Magnesium 1.8 mg/dL (1.6-2.6); Phosphorous 3.1 mg/dL (2.7-4.5); Potassium 3.6 mEq/L (3.5-5.1)
[2019-06-19] MEDS: Renal Vitamin 1 CAP CAPSULE PO SCH (10:33)
[2019-06-19] MEDS: Fenofibrate 54 MG TABLET PO SCH (10:33)
[2019-06-19] MEDS: carvediloL 6.25 MG TABLET PO SCH ×2 (10:33→16:54)
[2019-06-19] MEDS: Aspirin Enteric Coated 81 MG Tablet PO SCH (10:33)
[2019-06-19] MEDS: Furosemide 40 MG TABLET PO SCH (10:34)
[2019-06-19] MEDS: Isosorbide MONOnitrate (24 HR) 30 MG TAB.ER.24H PO SCH (10:34)
[2019-06-19] MEDS: *HR* FentaNYL PATCH 25 MCG PATCH TD SCH (10:34)
[2019-06-19] MEDS: Valsartan 160 MG TABLET PO SCH (10:34)
[2019-06-19] MEDS ORDERED: Insulin LISPRO 300 UNITS/3 ML VIAL SQ SCH (21:00)
[2019-06-20] MEDS: Metoclopramide 10 MG/2 ML VIAL IVP PRN (00:33)
[2019-06-20 03:05] LABS: Kappa Qnt Free Light Chains 16.6 mg/dL (0.33-1.94); Lambda Qnt Free Light Chains 8.42 mg/dL (0.57-2.63)
[2019-06-20 06:25] LABS: Chol/HDL Ratio 5.5 (0-4.9)
[2019-06-20] MEDS: Pantoprazole 40 MG VIAL IVP SCH ×2 (06:35→19:11)
[2019-06-20] MEDS ORDERED: 0.9 % Sodium Chloride 250 ML IVC PRN (06:57)
[2019-06-20] MEDS: Aspirin Enteric Coated 81 MG Tablet PO SCH (08:12)
[2019-06-20] MEDS: Fenofibrate 54 MG TABLET PO SCH (08:12)
[2019-06-20] MEDS: Renal Vitamin 1 CAP CAPSULE PO SCH (08:12)
[2019-06-20] MEDS: Insulin LISPRO 300 UNITS/3 ML VIAL SQ SCH ×3 (08:13→17:21)
[2019-06-20 08:15] LABS: Hemoglobin 9.2 g/dL (11.5-15.4); Immature Granulocytes % 0.5 % (0-4); Monocytes % 7.8 %; Red Cell Distribution Width 19.9 % (11.5-14.5)
[2019-06-20 08:17] LABS: Basophils % 0.3 %; Eosinophils # 0.2 K/mcL (0.0-0.6); Eosinophils % 5.7 %; Hematocrit 27.4 % (35.3-44.9); Immature Platelets 5.2 % (1.1-6.1); Lymphocytes # 0.4 K/mcL (0.6-4.6); Lymphocytes % 10.8 %; Mean Corpuscular HGB Conc 33.6 g/dL (31.6-35.5); Mean Corpuscular Hemoglobin 32.6 pg (28.0-33.3); Mean Corpuscular Volume 97.2 fL (83.0-100.0); Mean Platelet Volume 10.2 fL (9.4-12.4); Monocytes # 0.3 K/mcL (0.0-1.3); Neutrophils # 2.8 K/mcL (1.6-8.9); Platelet Count 82 K/mcL (140-400); Red Blood Count 2.82 M/mcL (3.82-4.97); Segmented Neutrophils % 74.9 %; White Blood Count 3.7 K/mcL (4.3-11.1)
[2019-06-20 08:25] LABS: ANA IgG by ELISA NONE DETECTED (None Detected)
[2019-06-20 08:27] LABS: Calcium 7.5 mg/dL (8.6-10.3); Magnesium 1.8 mg/dL (1.6-2.6); Phosphorous 3.6 mg/dL (2.7-4.5); Potassium 3.5 mEq/L (3.5-5.1)
[2019-06-20] MEDS: carvediloL 6.25 MG TABLET PO SCH ×2 (12:18→19:11)
[2019-06-20] MEDS: Isosorbide MONOnitrate (24 HR) 30 MG TAB.ER.24H PO SCH (18:59)
[2019-06-20] MEDS: Furosemide 40 MG TABLET PO SCH (18:59)
[2019-06-20] MEDS: Valsartan 160 MG TABLET PO SCH (18:59)
[2019-06-20 19:10] VITALS: BP 150/66
[2019-06-21 00:59] LABS: Alpha 2 Globulin (PEP) 1.08 g/dL (0.48-1.05)
[2019-06-21 10:10] LABS: IFE Reflexed IFE Done; Immunoglobulin G 1020 mg/dL (768-1632)
[2019-06-21 10:11] LABS: Immunoglobulin A 299 mg/dL (68-408); Immunoglobulin M 91 mg/dL (35-263)
== END 2019-06-20 20:37 | disposition home or self-care (01) | DRG 438 ==
LOC: 2ANU 19:07 → EMEROOARM 19:07 → SUATTDRO 22:47 → 2ANU 23:21
PROVIDERS: ADMIT Family Medicine; ATTEND Internal Medicine

== ENCOUNTER 2019-08-12 07:04 | Inpatient (IN) ==
[2019-08-12 07:59] LABS: Hematocrit 16.9 % (35.3-44.9); Mean Corpuscular Volume 112.7 fL (83.0-100.0); Mean Platelet Volume 9.4 fL (9.4-12.4); Platelet Count 117 K/mcL (140-400); White Blood Count 3.4 K/mcL (4.3-11.1)
[2019-08-12 08:02] LABS: Hemoglobin 5.4 g/dL (11.5-15.4)
[2019-08-12 08:27] LABS: INR 1.3; Prothrombin Time 14.2 Seconds (9.4-12.1)
[2019-08-12 08:29] LABS: Activated Partial Thrombo Time 40.7 Seconds (26.0-36.0)
[2019-08-12 09:14] LABS: Albumin 3.6 g/dL (3.5-5.7); Albumin/Globulin Ratio 1.3 (1.1-2.2); Bilirubin,Total 0.7 mg/dL (0.3-1.0); Calcium 9.9 mg/dL (8.6-10.3); Globulin 2.7 g/dL (2.4-3.5); Potassium 3.5 mEq/L (3.5-5.1); Total Protein 6.3 g/dL (6.4-8.9)
[2019-08-12] MEDS ORDERED: 0.9 % Sodium Chloride 500 ML ONE (09:47)
[2019-08-12] MEDS ORDERED: 0.9 % Sodium Chloride 250 ML IVC PRN (09:48)
[2019-08-12] MEDS ORDERED: 0.9 % Sodium Chloride 1,000 ML PRIME SCH (10:00)
[2019-08-12] MEDS ORDERED: Acetaminophen 325 MG TABLET PO ONE (11:29)
[2019-08-12] MEDS ORDERED: Ondansetron 4 MG/2 ML VIAL IVP PRN (13:46)
[2019-08-12] MEDS ORDERED: *HR* Dextrose 50 % in Water (Syg) 50 ML SYRINGE IVP PRN (13:56)
[2019-08-12] MEDS ORDERED: D5% in Water 1,000 ML IVC PRN (13:56)
[2019-08-12] MEDS ORDERED: Dextrose Gel 15 GM/37.5 ML TUBE PO PRN ×2 (13:56)
[2019-08-12] MEDS: Insulin LISPRO 300 UNITS/3 ML VIAL SQ SCH (17:11)
[2019-08-12 17:19] LABS: Hematocrit 22.3 % (35.3-44.9)
[2019-08-12 17:23] LABS: Hemoglobin 7.4 g/dL (11.5-15.4)
[2019-08-12] MEDS: Insulin DETEMIR 100 UNIT/ML X5UNITS SQ SCH (21:11)
[2019-08-12 23:32] LABS: Hematocrit 23.6 % (35.3-44.9); Hemoglobin 7.9 g/dL (11.5-15.4)
[2019-08-12] MEDS: Acetaminophen 325 MG TABLET PO PRN (23:32)
[2019-08-13] MEDS: Acetaminophen 325 MG TABLET PO PRN ×2 (06:11→23:56)
[2019-08-13 07:00] LABS: Hematocrit 25.2 % (35.3-44.9); Hemoglobin 8.3 g/dL (11.5-15.4)
[2019-08-13 07:07] LABS: Basophils % 0.4 %; Eosinophils # 0.2 K/mcL (0.0-0.6); Hematocrit 24.6 % (35.3-44.9); Hemoglobin 8.5 g/dL (11.5-15.4); Immature Granulocytes % 0.4 % (0-4); Lymphocytes # 0.5 K/mcL (0.6-4.6); Lymphocytes % 10.3 %; Mean Corpuscular HGB Conc 34.6 g/dL (31.6-35.5); Mean Corpuscular Hemoglobin 33.9 pg (28.0-33.3); Mean Platelet Volume 9.4 fL (9.4-12.4); Monocytes # 0.4 K/mcL (0.0-1.3); Monocytes % 8.1 %; Neutrophils # 3.4 K/mcL (1.6-8.9); Platelet Count 134 K/mcL (140-400); Red Blood Count 2.51 M/mcL (3.82-4.97); Red Cell Distribution Width 20.4 % (11.5-14.5); Segmented Neutrophils % 76.8 %; White Blood Count 4.5 K/mcL (4.3-11.1)
[2019-08-13 07:23] LABS: Calcium 9.1 mg/dL (8.6-10.3); Potassium 3.5 mEq/L (3.5-5.1)
[2019-08-13 07:45] LABS: Folate 10.1 ng/mL (3.0-16.0)
[2019-08-13] MEDS: Insulin LISPRO 300 UNITS/3 ML VIAL SQ SCH ×3 (07:59→17:24)
[2019-08-13] MEDS: carvediloL 6.25 MG TABLET PO SCH (17:18)
[2019-08-13] MEDS: Insulin DETEMIR 100 UNIT/ML X5UNITS SQ SCH (20:09)
[2019-08-14] MEDS ORDERED: Melatonin 3 MG TABLET PO PRN (00:15)
[2019-08-14] MEDS ORDERED: Melatonin 3 MG TABLET PO ONE (01:09)
[2019-08-14 07:44] LABS: Hematocrit 23.7 % (35.3-44.9); Mean Corpuscular HGB Conc 33.8 g/dL (31.6-35.5); Mean Corpuscular Hemoglobin 33.6 pg (28.0-33.3); Mean Corpuscular Volume 99.6 fL (83.0-100.0); Mean Platelet Volume 9.4 fL (9.4-12.4); Platelet Count 108 K/mcL (140-400); Red Blood Count 2.38 M/mcL (3.82-4.97); Red Cell Distribution Width 19.9 % (11.5-14.5); White Blood Count 4.9 K/mcL (4.3-11.1)
[2019-08-14 07:58] LABS: Calcium 8.5 mg/dL (8.6-10.3); Potassium 3.3 mEq/L (3.5-5.1)
[2019-08-14] MEDS: Insulin LISPRO 300 UNITS/3 ML VIAL SQ SCH ×3 (08:08→16:58)
[2019-08-14] MEDS: Fenofibrate 54 MG TABLET PO SCH (08:23)
[2019-08-14] MEDS: Valsartan 160 MG TABLET PO SCH (08:23)
[2019-08-14] MEDS: Aspirin 81 MG TAB.CHEW PO SCH (08:24)
[2019-08-14] MEDS: Cyanocobalamin (B-12) 1,000 MCG TABLET PO SCH (08:24)
[2019-08-14] MEDS: Furosemide 40 MG TABLET PO SCH (08:24)
[2019-08-14] MEDS: carvediloL 6.25 MG TABLET PO SCH ×2 (08:24→16:58)
[2019-08-14] MEDS: Cholecalciferol (D-3) 1,000 UNIT (25MCG) TABLET PO SCH (08:24)
[2019-08-14] MEDS: Isosorbide MONOnitrate (24 HR) 30 MG TAB.ER.24H PO SCH (08:24)
[2019-08-14] MEDS ORDERED: Potassium Chloride Elixir 20 MEQ/15 ML UDC PO ONE (10:05)
[2019-08-14] MEDS: Insulin DETEMIR 100 UNIT/ML X5UNITS SQ SCH (20:38)
[2019-08-15 01:32] LABS: Hematocrit 21.7 % (35.3-44.9); Hemoglobin 7.2 g/dL (11.5-15.4); Mean Corpuscular HGB Conc 33.2 g/dL (31.6-35.5); Mean Corpuscular Hemoglobin 33.3 pg (28.0-33.3); Mean Corpuscular Volume 100.5 fL (83.0-100.0); Mean Platelet Volume 9.6 fL (9.4-12.4); Platelet Count 116 K/mcL (140-400); Red Blood Count 2.16 M/mcL (3.82-4.97); Red Cell Distribution Width 20.5 % (11.5-14.5); White Blood Count 4.9 K/mcL (4.3-11.1)
[2019-08-15 01:53] LABS: Calcium 8.3 mg/dL (8.6-10.3)
[2019-08-15] MEDS ORDERED: 0.9 % Sodium Chloride 250 ML IVC PRN ×2 (07:08→15:27)
[2019-08-15] MEDS ORDERED: Acetaminophen 325 MG TABLET PO PRN ×2 (07:08→15:27)
[2019-08-15] MEDS: Insulin LISPRO 300 UNITS/3 ML VIAL SQ SCH ×3 (07:40→16:05)
[2019-08-15] MEDS: Furosemide 40 MG TABLET PO SCH (07:52)
[2019-08-15] MEDS: Valsartan 160 MG TABLET PO SCH (07:52)
[2019-08-15] MEDS: Fenofibrate 54 MG TABLET PO SCH (07:52)
[2019-08-15] MEDS: Isosorbide MONOnitrate (24 HR) 30 MG TAB.ER.24H PO SCH (07:52)
[2019-08-15] MEDS: carvediloL 6.25 MG TABLET PO SCH ×2 (07:52→16:02)
[2019-08-15] MEDS: Aspirin 81 MG TAB.CHEW PO SCH (07:52)
[2019-08-15] MEDS: Cholecalciferol (D-3) 1,000 UNIT (25MCG) TABLET PO SCH (07:52)
[2019-08-15] MEDS: Cyanocobalamin (B-12) 1,000 MCG TABLET PO SCH (07:53)
[2019-08-15] MEDS ORDERED: Albumin 25% 25gram/100mL 25 GM/100 ML IV.SOLN IVPB PRN ×2 (09:47→15:27)
[2019-08-15] MEDS ORDERED: *HR* OxyCODONE Immed Rel 5 MG TABLET PO PRN (13:23)
[2019-08-15] MEDS ORDERED: Morphine Sulfate 2 MG/ML SYRINGE IVP PRN (13:23)
[2019-08-15] MEDS ORDERED: ceFAZolin 2,000 MG in Water for inj. (sterile) 20 ML IVP ONE ×2 (13:53→15:27)
[2019-08-15] MEDS ORDERED: Lidocaine -MPF 2% 2 ML VIAL ONE (14:16)
[2019-08-15] MEDS ORDERED: *HR* Propofol 200 MG/20 ML VIAL IVP ONE (14:16)
[2019-08-15] MEDS ORDERED: Propofol 500 MG/50 ML INFUS..BTL ONE (14:16)
[2019-08-15] MEDS ORDERED: Ondansetron 4 MG/2 ML VIAL ONE (14:17)
[2019-08-15] MEDS ORDERED: Dexamethasone 4 MG/ML VIAL ONE (14:17)
[2019-08-15] MEDS ORDERED: *HR* FentaNYL (PF) 100 MCG/2 ML VIAL ONE (14:22)
[2019-08-15] MEDS ORDERED: *HR* PHENYLEPHRINE 1,000 MCG/10 ML SYRINGE IVP ONE (14:35)
[2019-08-15] MEDS ORDERED: Dextrose Gel 15 GM/37.5 ML TUBE PO PRN ×2 (15:27)
[2019-08-15] MEDS ORDERED: Ondansetron 4 MG/2 ML VIAL IVP PRN (15:27)
[2019-08-15] MEDS ORDERED: D5% in Water 1,000 ML IVC PRN (15:27)
[2019-08-15] MEDS ORDERED: 0.9 % Sodium Chloride 1,000 ML PRIME SCH (15:27)
[2019-08-15] MEDS ORDERED: *HR* Dextrose 50 % in Water (Syg) 50 ML SYRINGE IVP PRN (15:27)
[2019-08-15] MEDS ORDERED: Insulin DETEMIR 100 UNIT/ML X5UNITS SQ SCH (21:00)
[2019-08-16 06:26] LABS: Basophils % 0.3 %; Eosinophils % 0.7 %; Hematocrit 22.1 % (35.3-44.9); Hemoglobin 7.2 g/dL (11.5-15.4); Immature Granulocytes % 0.3 % (0-4); Lymphocytes # 0.5 K/mcL (0.6-4.6); Lymphocytes % 8.2 %; Mean Corpuscular HGB Conc 32.6 g/dL (31.6-35.5); Mean Corpuscular Hemoglobin 33.8 pg (28.0-33.3); Mean Corpuscular Volume 103.8 fL (83.0-100.0); Mean Platelet Volume 9.7 fL (9.4-12.4); Monocytes # 0.3 K/mcL (0.0-1.3); Monocytes % 5.1 %; Platelet Count 118 K/mcL (140-400); Red Blood Count 2.13 M/mcL (3.82-4.97); Red Cell Distribution Width 20.4 % (11.5-14.5); Segmented Neutrophils % 85.4 %; White Blood Count 5.9 K/mcL (4.3-11.1)
[2019-08-16 06:47] LABS: Potassium 5.1 mEq/L (3.5-5.1)
[2019-08-16] MEDS: Insulin LISPRO 300 UNITS/3 ML VIAL SQ SCH ×2 (07:54→11:32)
[2019-08-16] MEDS ORDERED: *HR* FentaNYL (PF) 100 MCG/2 ML VIAL IVP ONE (08:56)
[2019-08-16] MEDS ORDERED: *HR* Midazolam HCl 2 MG/2 ML VIAL IVP ONE (08:56)
[2019-08-16] MEDS ORDERED: Valsartan 160 MG TABLET PO SCH (09:00)
[2019-08-16] MEDS ORDERED: Cyanocobalamin (B-12) 1,000 MCG TABLET PO SCH (09:00)
[2019-08-16] MEDS ORDERED: Isosorbide MONOnitrate (24 HR) 30 MG TAB.ER.24H PO SCH (09:00)
[2019-08-16] MEDS ORDERED: Aspirin 81 MG TAB.CHEW PO SCH (09:00)
[2019-08-16] MEDS ORDERED: Fenofibrate 54 MG TABLET PO SCH (09:00)
[2019-08-16] MEDS ORDERED: Furosemide 40 MG TABLET PO SCH (09:00)
[2019-08-16] MEDS ORDERED: Cholecalciferol (D-3) 1,000 UNIT (25MCG) TABLET PO SCH (09:00)
[2019-08-16] MEDS ORDERED: 0.9 % Sodium Chloride 500 ML ONE (09:37)
[2019-08-16] MEDS: carvediloL 6.25 MG TABLET PO SCH (11:29)
[2019-08-16 11:57] VITALS: BP 97/62
== END 2019-08-16 15:26 | disposition home or self-care (01) | DRG 981 ==
LOC: 2ANU 07:04 → EMEROOARM 07:04 → SUATTDRO 12:41 → 2ANU 13:25
PROVIDERS: ADMIT Internal Medicine; ATTEND Internal Medicine

== ENCOUNTER 2020-03-18 21:00 | Inpatient (IN) ==
[2020-03-18 21:35] LABS: Basophils # 0.1 K/mcL (0.0-0.2); Basophils % 1.3 %; Eosinophils # 0.2 K/mcL (0.0-0.6); Eosinophils % 2.8 %; Hematocrit 27.6 % (35.3-44.9); Hemoglobin 8.7 g/dL (11.5-15.4); Immature Granulocytes % 1.5 % (0-4); Lymphocytes # 0.9 K/mcL (0.6-4.6); Lymphocytes % 12.5 %; Mean Corpuscular HGB Conc 31.5 g/dL (31.6-35.5); Mean Corpuscular Hemoglobin 35.1 pg (28.0-33.3); Mean Corpuscular Volume 111.3 fL (83.0-100.0); Mean Platelet Volume 10.3 fL (9.4-12.4); Monocytes # 0.5 K/mcL (0.0-1.3); Monocytes % 7.2 %; Neutrophils # 5.1 K/mcL (1.6-8.9); Nucleated Red Blood Cells 0.3 /100 WBC (0); Platelet Count 144 K/mcL (140-400); Red Blood Count 2.48 M/mcL (3.82-4.97); Segmented Neutrophils % 74.7 %; White Blood Count 6.8 K/mcL (4.3-11.1)
[2020-03-18 21:53] LABS: Anisocytosis 1+ (Not Present); Macrocytosis Present (Not Present); Platelet Estimate Normal (Normal)
[2020-03-18 22:13] LABS: Albumin 4.4 g/dL (3.5-5.7); Albumin/Globulin Ratio 1.4 (1.1-2.2); Bilirubin,Direct 0.3 mg/dL (0.0-0.2); Bilirubin,Indirect 0.6 mg/dL (0.0-1.0); Bilirubin,Total 0.9 mg/dL (0.3-1.0); Calcium 9.4 mg/dL (8.6-10.3); Globulin 3.1 g/dL (2.4-3.5); Magnesium 2.8 mg/dL (1.6-2.6); Potassium 5.8 mEq/L (3.5-5.1); Thyroid Stimulating Hormone 16.063 mcIU/mL (0.340-5.600); Total Protein 7.5 g/dL (6.4-8.9); Troponin I 0.05 ng/mL (< 0.04)
[2020-03-18] MEDS ORDERED: Albuterol Neb 1.25 MG/3 ML VIAL IH ONE (22:27)
[2020-03-18] MEDS ORDERED: Insulin Human Regular 10 UNIT in 0.9 % Sodium Chloride 10 ML IV ONE (22:27)
[2020-03-18] MEDS ORDERED: *HR* Dextrose 50 % in Water (Vial) 50 ML VIAL IVP ONE (22:27)
[2020-03-18] MEDS ORDERED: Calcium Gluconate 1gm/50mL 1 GM/50 ML BAG IVPB ONE (22:53)
[2020-03-18 23:08] LABS: Adenovirus Not Detected (Not Detect); Bordetella Pertussis Not Detected (Not Detect); Chlamydophila pneumoniae Not Detected (Not Detect); Coronavirus 229E Not Detected (Not Detect); Coronavirus HKU1 Not Detected (Not Detect); Coronavirus NL63 Not Detected (Not Detect); Coronavirus OC43 Not Detected (Not Detect); Human Metapneumovirus Not Detected (Not Detect); Human Rhinovirus/Enterovirus Not Detected (Not Detect); Influenza A Subtype 2009 H1 Not Detected (Not Detect); Influenza B Not Detected (Not Detect); Mycoplasma pneumoniae Not Detected (Not Detect); Parainfluenza Virus 1 Not Detected (Not Detect); Parainfluenza Virus 2 Not Detected (Not Detect); Parainfluenza Virus 3 Not Detected (Not Detect); Parainfluenza Virus 4 Not Detected (Not Detect); Respiratory Syncytial Virus Not Detected (Not Detect); SARS-CoV-2 Not Detected (Not Detect)
[2020-03-18 23:11] LABS: VBG HCO3 15 mEq/L (21-27); VBG PCO2 33 mmHg (41-51); VBG PH 7.28 pH Units (7.32-7.42); VBG PO2 49 mmHg (25-50)
[2020-03-18] MEDS ORDERED: Sodium Bicarbonate 50 MEQ/50 ML VIAL IVP ONE (23:31)
[2020-03-18] MEDS ORDERED: Furosemide 40 MG/4 ML VIAL IVP ONE (23:32)
[2020-03-18] MEDS ORDERED: Naloxone 0.4 MG/ML INJ IVP PRN (23:57)
[2020-03-19] MEDS ORDERED: Dextrose Gel 15 GM/37.5 ML TUBE PO PRN ×2 (00:24)
[2020-03-19] MEDS ORDERED: D5% in Water 1,000 ML IVC PRN (00:24)
[2020-03-19] MEDS ORDERED: *HR* Dextrose 50 % in Water (Vial) 50 ML VIAL IVP PRN (00:24)
[2020-03-19 03:54] LABS: Basophils # 0.1 K/mcL (0.0-0.2); Eosinophils # 0.1 K/mcL (0.0-0.6); Eosinophils % 2.4 %; Hematocrit 24.8 % (35.3-44.9); Hemoglobin 7.8 g/dL (11.5-15.4); Immature Granulocytes % 1.4 % (0-4); Lymphocytes # 0.5 K/mcL (0.6-4.6); Lymphocytes % 9.1 %; Mean Corpuscular HGB Conc 31.5 g/dL (31.6-35.5); Mean Corpuscular Hemoglobin 34.7 pg (28.0-33.3); Mean Corpuscular Volume 110.2 fL (83.0-100.0); Mean Platelet Volume 10.1 fL (9.4-12.4); Monocytes # 0.4 K/mcL (0.0-1.3); Monocytes % 7.7 %; Nucleated Red Blood Cells 0.4 /100 WBC (0); Platelet Count 119 K/mcL (140-400); Red Blood Count 2.25 M/mcL (3.82-4.97); Red Cell Distribution Width 16.9 % (11.5-14.5); Segmented Neutrophils % 78.4 %
[2020-03-19 03:56] LABS: Neutrophils # 3.9 K/mcL (1.6-8.9)
[2020-03-19 04:21] LABS: Albumin 4.1 g/dL (3.5-5.7); Albumin/Globulin Ratio 1.6 (1.1-2.2); Bilirubin,Total 0.9 mg/dL (0.3-1.0); Calcium 9.3 mg/dL (8.6-10.3); Globulin 2.5 g/dL (2.4-3.5); Magnesium 2.5 mg/dL (1.6-2.6); Phosphorous 13.2 mg/dL (2.7-4.5); Potassium 4.3 mEq/L (3.5-5.1); Total Protein 6.6 g/dL (6.4-8.9)
[2020-03-19 04:40] LABS: Platelet Estimate Slight Decrease (Normal)
[2020-03-19 04:41] LABS: Anisocytosis 1+ (Not Present); Macrocytosis Present (Not Present)
[2020-03-19] MEDS: *HR* Heparin 5,000 UNIT/ML VIAL SQ SCH ×3 (05:31→20:20)
[2020-03-19] MEDS ORDERED: 0.9 % Sodium Chloride 250 ML IVC PRN (07:52)
[2020-03-19] MEDS ORDERED: *HR* Heparin 10,000 UNIT/10 ML VIAL IV PRN (07:52)
[2020-03-19] MEDS ORDERED: 0.9 % Sodium Chloride 1,000 ML PRIME SCH (08:00)
[2020-03-19] MEDS: Insulin LISPRO 300 UNITS/3 ML VIAL SQ SCH ×3 (08:12→16:19)
[2020-03-19] MEDS: Isosorbide MONOnitrate (24 HR) 30 MG TAB.ER.24H PO SCH (08:16)
[2020-03-19] MEDS: Fenofibrate 54 MG TABLET PO SCH (08:16)
[2020-03-19] MEDS: Aspirin 81 MG TAB.CHEW PO SCH (08:17)
[2020-03-19] MEDS: Cyanocobalamin (B-12) 1,000 MCG TABLET PO SCH (08:17)
[2020-03-19] MEDS: Cholecalciferol (D-3) 1,000 UNIT (25MCG) TABLET PO SCH (08:17)
[2020-03-19 10:28] LABS: Hepatitis B Surface Antibody 267.08 mIU/mL
[2020-03-19 10:39] LABS: Hepatitis B Surface Antigen Nonreactive (Nonreactive)
[2020-03-19] MEDS: carvediloL 6.25 MG TABLET PO SCH ×2 (11:24→20:21)
[2020-03-19] MEDS: Valsartan 160 MG TABLET PO SCH (15:55)
[2020-03-19] MEDS: Insulin DETEMIR 100 UNIT/ML X5UNITS SQ SCH (20:21)
[2020-03-20 01:41] LABS: Hematocrit 24.2 % (35.3-44.9); Hemoglobin 7.6 g/dL (11.5-15.4); Mean Corpuscular HGB Conc 31.4 g/dL (31.6-35.5); Mean Corpuscular Hemoglobin 34.5 pg (28.0-33.3); Mean Platelet Volume 10.3 fL (9.4-12.4); Platelet Count 105 K/mcL (140-400); Red Cell Distribution Width 16.9 % (11.5-14.5); White Blood Count 4.8 K/mcL (4.3-11.1)
[2020-03-20 02:04] LABS: Calcium 10.4 mg/dL (8.6-10.3); Potassium 4.1 mEq/L (3.5-5.1)
[2020-03-20] MEDS ORDERED: *HR* HYDROcodone/Acet 7.5/325 mg TABLET PO ONE (03:27)
[2020-03-20] MEDS: *HR* Heparin 5,000 UNIT/ML VIAL SQ SCH ×2 (05:32→13:46)
[2020-03-20] MEDS: Insulin LISPRO 300 UNITS/3 ML VIAL SQ SCH ×3 (07:43→16:02)
[2020-03-20] MEDS: Aspirin 81 MG TAB.CHEW PO SCH (08:37)
[2020-03-20] MEDS: Fenofibrate 54 MG TABLET PO SCH (08:38)
[2020-03-20] MEDS: Cyanocobalamin (B-12) 1,000 MCG TABLET PO SCH (08:38)
[2020-03-20] MEDS: Cholecalciferol (D-3) 1,000 UNIT (25MCG) TABLET PO SCH (08:38)
[2020-03-20] MEDS ORDERED: Lidocaine 4% CREAM (LMX) 5 GM TP PRN (09:36)
[2020-03-20] MEDS ORDERED: Morphine Sulfate 2 MG/ML SYRINGE IVP ONE (09:36)
[2020-03-20] MEDS: Valsartan 160 MG TABLET PO SCH (10:22)
[2020-03-20] MEDS: Isosorbide MONOnitrate (24 HR) 30 MG TAB.ER.24H PO SCH (10:23)
[2020-03-20] MEDS: carvediloL 6.25 MG TABLET PO SCH ×2 (10:23→19:45)
[2020-03-20] MEDS: Ondansetron 4 MG/2 ML VIAL IVP PRN (12:14)
[2020-03-20] MEDS: Furosemide 40 MG TABLET PO SCH (18:07)
[2020-03-20] MEDS: calcitrioL 0.25 MCG CAPSULE PO SCH (18:07)
[2020-03-20] MEDS: Apixaban 5 MG TABLET PO SCH (19:46)
[2020-03-20] MEDS: Insulin DETEMIR 100 UNIT/ML X5UNITS SQ SCH (19:46)
[2020-03-20] MEDS ORDERED: *HR* OxyCODONE Immed Rel 5 MG TABLET PO PRN (19:56)
[2020-03-21] MEDS ORDERED: Morphine Sulfate 2 MG/ML SYRINGE IVP PRN (01:27)
[2020-03-21 02:47] LABS: Hematocrit 25.5 % (35.3-44.9); Hemoglobin 7.9 g/dL (11.5-15.4); Mean Corpuscular Hemoglobin 34.6 pg (28.0-33.3); Mean Corpuscular Volume 111.8 fL (83.0-100.0); Mean Platelet Volume 10.5 fL (9.4-12.4); Platelet Count 112 K/mcL (140-400); Red Blood Count 2.28 M/mcL (3.82-4.97); Red Cell Distribution Width 16.9 % (11.5-14.5); White Blood Count 3.7 K/mcL (4.3-11.1)
[2020-03-21 03:05] LABS: Calcium 10.4 mg/dL (8.6-10.3); Potassium 3.7 mEq/L (3.5-5.1)
[2020-03-21] MEDS: Insulin LISPRO 300 UNITS/3 ML VIAL SQ SCH ×3 (07:21→17:13)
[2020-03-21] MEDS ORDERED: 0.9 % Sodium Chloride 250 ML IVC PRN (08:47)
[2020-03-21] MEDS ORDERED: *HR* Heparin 10,000 UNIT/10 ML VIAL IV PRN ×2 (08:47)
[2020-03-21] MEDS: carvediloL 6.25 MG TABLET PO SCH ×2 (09:00→17:13)
[2020-03-21] MEDS ORDERED: Perflutren Lipid Microsphere 1.3 ML in 0.9 % Sodium Chloride 8.7 ML IVP PRN (10:25)
[2020-03-21] MEDS: Acetaminophen 325 MG TABLET PO PRN ×2 (10:32→17:20)
[2020-03-21] MEDS ORDERED: *HR* HYDROcodone/Acet 5/325 mg TABLET PO PRN (12:01)
[2020-03-21] MEDS ORDERED: *HR* HYDROmorphone (PF) 1 MG/ML SYRINGE IVP ONE (13:46)
[2020-03-21] MEDS ORDERED: *HR* OxyCODONE/APAP 5/325 TABLET PO PRN (13:52)
[2020-03-21] MEDS: Cholecalciferol (D-3) 1,000 UNIT (25MCG) TABLET PO SCH (15:09)
[2020-03-21] MEDS: Furosemide 40 MG TABLET PO SCH (15:09)
[2020-03-21] MEDS: Isosorbide MONOnitrate (24 HR) 30 MG TAB.ER.24H PO SCH (15:10)
[2020-03-21] MEDS: Apixaban 5 MG TABLET PO SCH ×2 (15:10→21:21)
[2020-03-21] MEDS: Fenofibrate 54 MG TABLET PO SCH (15:11)
[2020-03-21] MEDS: Cyanocobalamin (B-12) 1,000 MCG TABLET PO SCH (15:11)
[2020-03-21] MEDS: calcitrioL 0.25 MCG CAPSULE PO SCH (15:11)
[2020-03-21] MEDS: allopurinoL 100 MG TABLET PO SCH (15:11)
[2020-03-21] MEDS ORDERED: Acetaminophen IV 1,000 MG/100 ML BAG IVPB ONE (20:21)
[2020-03-21] MEDS: Insulin DETEMIR 100 UNIT/ML X5UNITS SQ SCH (21:22)
[2020-03-22] MEDS ORDERED: methocarbamoL 500 MG TABLET PO ONE (00:41)
[2020-03-22 03:40] LABS: Hematocrit 25.2 % (35.3-44.9); Hemoglobin 7.9 g/dL (11.5-15.4); Mean Corpuscular HGB Conc 31.3 g/dL (31.6-35.5); Mean Corpuscular Hemoglobin 35.3 pg (28.0-33.3); Mean Corpuscular Volume 112.5 fL (83.0-100.0); Mean Platelet Volume 10.6 fL (9.4-12.4); Platelet Count 108 K/mcL (140-400); Red Blood Count 2.24 M/mcL (3.82-4.97); Red Cell Distribution Width 16.6 % (11.5-14.5)
[2020-03-22 03:58] LABS: Potassium 4.1 mEq/L (3.5-5.1)
[2020-03-22] MEDS ORDERED: *HR* HYDROmorphone (PF) 1 MG/ML SYRINGE IVP ONE (05:35)
[2020-03-22] MEDS: Ondansetron 4 MG/2 ML VIAL IVP PRN (05:50)
[2020-03-22] MEDS ORDERED: Gabapentin 100 MG CAPSULE PO ONE (06:23)
[2020-03-22] MEDS: Insulin LISPRO 300 UNITS/3 ML VIAL SQ SCH ×3 (07:34→16:58)
[2020-03-22] MEDS: Apixaban 5 MG TABLET PO SCH ×2 (08:04→20:55)
[2020-03-22] MEDS: Valsartan 160 MG TABLET PO SCH (08:04)
[2020-03-22] MEDS: allopurinoL 100 MG TABLET PO SCH (08:04)
[2020-03-22] MEDS: Fenofibrate 54 MG TABLET PO SCH (08:04)
[2020-03-22] MEDS: calcitrioL 0.25 MCG CAPSULE PO SCH (08:04)
[2020-03-22] MEDS: Cyanocobalamin (B-12) 1,000 MCG TABLET PO SCH (08:05)
[2020-03-22] MEDS: Cholecalciferol (D-3) 1,000 UNIT (25MCG) TABLET PO SCH (08:05)
[2020-03-22] MEDS: Isosorbide MONOnitrate (24 HR) 30 MG TAB.ER.24H PO SCH (08:05)
[2020-03-22] MEDS: *HR* OxyCODONE/APAP 5/325 TABLET PO SCH ×4 (08:06→20:52)
[2020-03-22] MEDS ORDERED: *HR* HYDROmorphone (PF) 1 MG/ML SYRINGE IVP PRN (09:13)
[2020-03-22] MEDS: carvediloL 6.25 MG TABLET PO SCH ×3 (10:22→17:00)
[2020-03-22] MEDS ORDERED: Ketorolac 15 MG/ML VIAL IVP ONE (10:33)
[2020-03-22] MEDS: Furosemide 40 MG TABLET PO SCH (11:29)
[2020-03-22] MEDS: *HR* HYDROmorphone (PF) 1 MG/ML SYRINGE IVP PRN (18:26)
[2020-03-22] MEDS: Insulin DETEMIR 100 UNIT/ML X5UNITS SQ SCH (20:55)
[2020-03-22] MEDS: Ketorolac 15 MG/ML VIAL IVP PRN (20:56)
[2020-03-23] MEDS: *HR* HYDROmorphone (PF) 1 MG/ML SYRINGE IVP PRN ×3 (00:34→21:56)
[2020-03-23] MEDS: *HR* OxyCODONE/APAP 5/325 TABLET PO SCH ×2 (00:38→05:37)
[2020-03-23 04:37] LABS: Basophils % 0.6 %; Eosinophils # 0.2 K/mcL (0.0-0.6); Eosinophils % 2.2 %; Hematocrit 26.9 % (35.3-44.9); Hemoglobin 8.4 g/dL (11.5-15.4); Immature Granulocytes % 0.6 % (0-4); Lymphocytes # 0.5 K/mcL (0.6-4.6); Lymphocytes % 7.1 %; Mean Corpuscular HGB Conc 31.2 g/dL (31.6-35.5); Mean Corpuscular Hemoglobin 35.6 pg (28.0-33.3); Mean Platelet Volume 10.5 fL (9.4-12.4); Monocytes # 0.6 K/mcL (0.0-1.3); Monocytes % 8.9 %; Neutrophils # 5.8 K/mcL (1.6-8.9); Platelet Count 113 K/mcL (140-400); Red Blood Count 2.36 M/mcL (3.82-4.97); Red Cell Distribution Width 16.9 % (11.5-14.5); Segmented Neutrophils % 80.6 %; White Blood Count 7.2 K/mcL (4.3-11.1)
[2020-03-23 04:51] LABS: Calcium 9.1 mg/dL (8.6-10.3); Potassium 4.5 mEq/L (3.5-5.1)
[2020-03-23 05:17] LABS: Vitamin B12 > 1500 pg/mL (250-1100)
[2020-03-23] MEDS: Ketorolac 15 MG/ML VIAL IVP PRN ×2 (05:37→14:55)
[2020-03-23 05:50] LABS: Anisocytosis 1+ (Not Present); Macrocytosis Present (Not Present); Platelet Estimate Slight Decrease (Normal)
[2020-03-23] MEDS ORDERED: *HR* OxyCODONE/APAP 5/325 TABLET PO PRN (07:30)
[2020-03-23] MEDS ORDERED: 0.9 % Sodium Chloride 250 ML IVC PRN (07:51)
[2020-03-23] MEDS ORDERED: *HR* Heparin 10,000 UNIT/10 ML VIAL IV PRN (07:51)
[2020-03-23] MEDS ORDERED: 0.9 % Sodium Chloride 1,000 ML PRIME SCH (08:00)
[2020-03-23] MEDS: Insulin LISPRO 300 UNITS/3 ML VIAL SQ SCH ×3 (08:03→17:24)
[2020-03-23] MEDS: Valsartan 160 MG TABLET PO SCH (08:04)
[2020-03-23] MEDS: Isosorbide MONOnitrate (24 HR) 30 MG TAB.ER.24H PO SCH (08:04)
[2020-03-23] MEDS: carvediloL 6.25 MG TABLET PO SCH ×2 (08:04→17:20)
[2020-03-23] MEDS: Fenofibrate 54 MG TABLET PO SCH (08:13)
[2020-03-23] MEDS: Apixaban 5 MG TABLET PO SCH ×2 (08:13→19:43)
[2020-03-23] MEDS: Cholecalciferol (D-3) 1,000 UNIT (25MCG) TABLET PO SCH (08:13)
[2020-03-23] MEDS: allopurinoL 100 MG TABLET PO SCH (08:13)
[2020-03-23] MEDS: Cyanocobalamin (B-12) 1,000 MCG TABLET PO SCH (08:15)
[2020-03-23] MEDS: Acetaminophen 325 MG TABLET PO PRN (08:15)
[2020-03-23] MEDS: calcitrioL 0.25 MCG CAPSULE PO SCH (08:15)
[2020-03-23] MEDS: Furosemide 40 MG TABLET PO SCH (08:18)
[2020-03-23] MEDS ORDERED: *HR* HYDROmorphone (PF) 1 MG/ML SYRINGE IVP ONE ×2 (10:55)
[2020-03-23] MEDS: Sennosides/Docusate Sodium TABLET PO SCH (19:43)
[2020-03-23] MEDS: Insulin DETEMIR 100 UNIT/ML X5UNITS SQ SCH (21:45)
[2020-03-24 01:47] LABS: Hematocrit 23.3 % (35.3-44.9); Hemoglobin 7.1 g/dL (11.5-15.4); Immature Platelets 4.6 % (1.1-6.1); Mean Corpuscular HGB Conc 30.5 g/dL (31.6-35.5); Mean Corpuscular Hemoglobin 34.5 pg (28.0-33.3); Mean Corpuscular Volume 113.1 fL (83.0-100.0); Mean Platelet Volume 10.2 fL (9.4-12.4); Red Blood Count 2.06 M/mcL (3.82-4.97); Red Cell Distribution Width 16.5 % (11.5-14.5); White Blood Count 8.4 K/mcL (4.3-11.1)
[2020-03-24 02:03] LABS: Potassium 4.4 mEq/L (3.5-5.1)
[2020-03-24] MEDS: *HR* HYDROmorphone (PF) 1 MG/ML SYRINGE IVP PRN ×2 (04:15→20:10)
[2020-03-24] MEDS: Ketorolac 15 MG/ML VIAL IVP PRN (05:37)
[2020-03-24] MEDS: Insulin LISPRO 300 UNITS/3 ML VIAL SQ SCH ×3 (08:29→16:55)
[2020-03-24] MEDS: Sennosides/Docusate Sodium TABLET PO SCH ×2 (08:35→20:10)
[2020-03-24] MEDS: carvediloL 6.25 MG TABLET PO SCH (08:35)
[2020-03-24] MEDS: calcitrioL 0.25 MCG CAPSULE PO SCH (08:35)
[2020-03-24] MEDS: Fenofibrate 54 MG TABLET PO SCH (08:36)
[2020-03-24] MEDS: Pregabalin 50 MG CAPSULE PO SCH (08:36)
[2020-03-24] MEDS: Cyanocobalamin (B-12) 1,000 MCG TABLET PO SCH (08:36)
[2020-03-24] MEDS: Isosorbide MONOnitrate (24 HR) 30 MG TAB.ER.24H PO SCH (08:36)
[2020-03-24] MEDS: Cholecalciferol (D-3) 1,000 UNIT (25MCG) TABLET PO SCH (08:36)
[2020-03-24] MEDS: Apixaban 5 MG TABLET PO SCH ×2 (08:36→20:10)
[2020-03-24] MEDS: Furosemide 40 MG TABLET PO SCH (08:36)
[2020-03-24] MEDS: allopurinoL 100 MG TABLET PO SCH (08:36)
[2020-03-24] MEDS: polyethylene glycoL 3350 17 GM POWD.PACK PO SCH (08:36)
[2020-03-24] MEDS: *HR* HYDROmorphone 2 MG TABLET PO PRN ×2 (11:37→16:59)
[2020-03-24] MEDS: Acetaminophen 325 MG TABLET PO PRN (20:10)
[2020-03-24] MEDS: Insulin DETEMIR 100 UNIT/ML X5UNITS SQ SCH (20:12)
[2020-03-25] MEDS: *HR* HYDROmorphone 2 MG TABLET PO PRN ×4 (01:43→21:56)
[2020-03-25 04:14] LABS: Hematocrit 23.2 % (35.3-44.9); Hemoglobin 7.2 g/dL (11.5-15.4); Mean Corpuscular Hemoglobin 34.8 pg (28.0-33.3); Mean Corpuscular Volume 112.1 fL (83.0-100.0); Mean Platelet Volume 10.8 fL (9.4-12.4); Platelet Count 125 K/mcL (140-400); Red Blood Count 2.07 M/mcL (3.82-4.97); Red Cell Distribution Width 16.4 % (11.5-14.5); White Blood Count 8.3 K/mcL (4.3-11.1)
[2020-03-25 04:33] LABS: Calcium 9.4 mg/dL (8.6-10.3)
[2020-03-25] MEDS: Insulin LISPRO 300 UNITS/3 ML VIAL SQ SCH ×3 (08:10→17:03)
[2020-03-25] MEDS: Cholecalciferol (D-3) 1,000 UNIT (25MCG) TABLET PO SCH (08:17)
[2020-03-25] MEDS: Fenofibrate 54 MG TABLET PO SCH (08:17)
[2020-03-25] MEDS: allopurinoL 100 MG TABLET PO SCH (08:18)
[2020-03-25] MEDS: Furosemide 40 MG TABLET PO SCH (08:18)
[2020-03-25] MEDS: Sennosides/Docusate Sodium TABLET PO SCH ×2 (08:18→21:53)
[2020-03-25] MEDS: calcitrioL 0.25 MCG CAPSULE PO SCH (08:18)
[2020-03-25] MEDS: Pregabalin 50 MG CAPSULE PO SCH (08:18)
[2020-03-25] MEDS: Metoprolol XL (24 HR) Succ 25 MG TAB.ER.24H PO SCH (08:18)
[2020-03-25] MEDS: Apixaban 5 MG TABLET PO SCH ×2 (08:19→21:53)
[2020-03-25] MEDS: Cyanocobalamin (B-12) 1,000 MCG TABLET PO SCH (08:19)
[2020-03-25] MEDS: Isosorbide MONOnitrate (24 HR) 30 MG TAB.ER.24H PO SCH (08:19)
[2020-03-25] MEDS: polyethylene glycoL 3350 17 GM POWD.PACK PO SCH (08:19)
[2020-03-25 12:59] LABS: Bacteria,Urine Few per hpf (None-Few); Bilirubin,Urine Negative (Negative); Blood,Urine Moderate (Negative); Clarity,Urine Ex.Turbid (Clear); Color,Urine Yellow (Yellow); Glucose,Urine (UA) Normal (Normal); Ketones,Urine Negative (Negative); Leukocyte Esterase,Urine Large (Negative); Mucus,Urine Few per lpf (None-Few); Nitrite,Urine Negative (Negative); Protein,Urine >=300 mg/dL (Neg-Trace); Specific Gravity,Urine 1.021 (1.010-1.025); Squamous Epithelial Cell,Urine Many per hpf (None-Few); WBC,Urine 30-50 per hpf (0-3)
[2020-03-25] MEDS: *HR* HYDROmorphone (PF) 1 MG/ML SYRINGE IVP PRN (17:04)
[2020-03-25] MEDS: Insulin DETEMIR 100 UNIT/ML X5UNITS SQ SCH (21:54)
[2020-03-26] MEDS: *HR* HYDROmorphone (PF) 1 MG/ML SYRINGE IVP PRN ×2 (00:10→19:22)
[2020-03-26 03:34] LABS: Basophils % 0.3 %; Eosinophils # 0.2 K/mcL (0.0-0.6); Eosinophils % 2.6 %; Hematocrit 21.9 % (35.3-44.9); Hemoglobin 6.6 g/dL (11.5-15.4); Immature Granulocytes % 0.5 % (0-4); Lymphocytes # 0.9 K/mcL (0.6-4.6); Lymphocytes % 11.1 %; Mean Corpuscular HGB Conc 30.1 g/dL (31.6-35.5); Mean Corpuscular Hemoglobin 33.3 pg (28.0-33.3); Mean Corpuscular Volume 110.6 fL (83.0-100.0); Mean Platelet Volume 10.8 fL (9.4-12.4); Monocytes # 0.7 K/mcL (0.0-1.3); Monocytes % 9.6 %; Neutrophils # 5.8 K/mcL (1.6-8.9); Platelet Count 151 K/mcL (140-400); Red Blood Count 1.98 M/mcL (3.82-4.97); Red Cell Distribution Width 16.1 % (11.5-14.5); Segmented Neutrophils % 75.9 %; White Blood Count 7.7 K/mcL (4.3-11.1)
[2020-03-26 03:55] LABS: Calcium 8.9 mg/dL (8.6-10.3); Potassium 5.7 mEq/L (3.5-5.1)
[2020-03-26 04:02] LABS: Macrocytosis Present (Not Present)
[2020-03-26] MEDS: *HR* HYDROmorphone 2 MG TABLET PO PRN ×4 (04:02→22:19)
[2020-03-26] MEDS: Insulin LISPRO 300 UNITS/3 ML VIAL SQ SCH ×3 (07:44→17:44)
[2020-03-26] MEDS ORDERED: 0.9 % Sodium Chloride 1,000 ML ONE (08:05)
[2020-03-26] MEDS: Sennosides/Docusate Sodium TABLET PO SCH ×2 (08:27→20:13)
[2020-03-26] MEDS: Cholecalciferol (D-3) 1,000 UNIT (25MCG) TABLET PO SCH (08:27)
[2020-03-26] MEDS: polyethylene glycoL 3350 17 GM POWD.PACK PO SCH (08:28)
[2020-03-26] MEDS: calcitrioL 0.25 MCG CAPSULE PO SCH (08:28)
[2020-03-26] MEDS: Fenofibrate 54 MG TABLET PO SCH (08:28)
[2020-03-26] MEDS: Isosorbide MONOnitrate (24 HR) 30 MG TAB.ER.24H PO SCH (08:28)
[2020-03-26] MEDS: Furosemide 40 MG TABLET PO SCH (08:28)
[2020-03-26] MEDS: allopurinoL 100 MG TABLET PO SCH (08:28)
[2020-03-26] MEDS: Metoprolol XL (24 HR) Succ 25 MG TAB.ER.24H PO SCH (08:28)
[2020-03-26] MEDS: Pregabalin 50 MG CAPSULE PO SCH (08:28)
[2020-03-26] MEDS: Cyanocobalamin (B-12) 1,000 MCG TABLET PO SCH (08:28)
[2020-03-26] MEDS ORDERED: 0.9 % Sodium Chloride 250 ML IVC PRN (09:11)
[2020-03-26 09:36] LABS: % Iron Saturation 22 % (15-50); Iron 57 mcg/dL (50-170); Transferrin 185 mg/dL (203-362)
[2020-03-26 09:53] LABS: Ferritin 449 ng/mL (10-120)
[2020-03-26] MEDS: Ondansetron 4 MG/2 ML VIAL IVP PRN (19:22)
[2020-03-26 20:02] LABS: Hematocrit 28.5 % (35.3-44.9)
[2020-03-26] MEDS: Insulin DETEMIR 100 UNIT/ML X5UNITS SQ SCH (20:13)
[2020-03-26 21:05] LABS: Hemoglobin 8.9 g/dL (11.5-15.4)
[2020-03-27] MEDS: *HR* HYDROmorphone (PF) 1 MG/ML SYRINGE IVP PRN ×3 (00:04→20:40)
[2020-03-27] MEDS: *HR* HYDROmorphone 2 MG TABLET PO PRN ×4 (04:14→18:50)
[2020-03-27 05:36] LABS: Hematocrit 26.6 % (35.3-44.9); Hemoglobin 8.5 g/dL (11.5-15.4); Mean Corpuscular Hemoglobin 32.7 pg (28.0-33.3); Mean Platelet Volume 10.6 fL (9.4-12.4); Platelet Count 140 K/mcL (140-400); Red Cell Distribution Width 19.9 % (11.5-14.5); White Blood Count 5.3 K/mcL (4.3-11.1)
[2020-03-27 05:39] LABS: Mean Corpuscular Volume 102.3 fL (83.0-100.0)
[2020-03-27 06:03] LABS: Calcium 9.1 mg/dL (8.6-10.3); Potassium 4.7 mEq/L (3.5-5.1)
[2020-03-27] MEDS: Furosemide 40 MG TABLET PO SCH (08:33)
[2020-03-27] MEDS: calcitrioL 0.25 MCG CAPSULE PO SCH (08:33)
[2020-03-27] MEDS: Fenofibrate 54 MG TABLET PO SCH (08:33)
[2020-03-27] MEDS: Cholecalciferol (D-3) 1,000 UNIT (25MCG) TABLET PO SCH (08:33)
[2020-03-27] MEDS: Pregabalin 50 MG CAPSULE PO SCH (08:34)
[2020-03-27] MEDS: Metoprolol XL (24 HR) Succ 25 MG TAB.ER.24H PO SCH (08:34)
[2020-03-27] MEDS: Sennosides/Docusate Sodium TABLET PO SCH ×2 (08:34→20:39)
[2020-03-27] MEDS: Isosorbide MONOnitrate (24 HR) 30 MG TAB.ER.24H PO SCH (08:34)
[2020-03-27] MEDS: allopurinoL 100 MG TABLET PO SCH (08:35)
[2020-03-27] MEDS: polyethylene glycoL 3350 17 GM POWD.PACK PO SCH (08:35)
[2020-03-27] MEDS: Cyanocobalamin (B-12) 1,000 MCG TABLET PO SCH (08:35)
[2020-03-27] MEDS: Insulin LISPRO 300 UNITS/3 ML VIAL SQ SCH ×3 (08:50→16:53)
[2020-03-27] MEDS ORDERED: Aspirin 81 MG TAB.CHEW PO SCH (09:00)
[2020-03-27 15:54] LABS: Hematocrit 27.2 % (35.3-44.9); Hemoglobin 8.5 g/dL (11.5-15.4)
[2020-03-27] MEDS: Apixaban 5 MG TABLET PO SCH (20:39)
[2020-03-27] MEDS: Insulin DETEMIR 100 UNIT/ML X5UNITS SQ SCH (20:40)
[2020-03-27] MEDS ORDERED: Apixaban 5 MG TABLET PO SCH (21:00)
[2020-03-28] MEDS: *HR* HYDROmorphone 2 MG TABLET PO PRN ×3 (01:31→12:31)
[2020-03-28 03:05] LABS: Hemoglobin 8.1 g/dL (11.5-15.4); Mean Corpuscular HGB Conc 31.2 g/dL (31.6-35.5); Mean Corpuscular Hemoglobin 32.9 pg (28.0-33.3); Mean Corpuscular Volume 105.7 fL (83.0-100.0); Mean Platelet Volume 10.8 fL (9.4-12.4); Platelet Count 141 K/mcL (140-400); Red Blood Count 2.46 M/mcL (3.82-4.97); Red Cell Distribution Width 19.1 % (11.5-14.5); White Blood Count 4.4 K/mcL (4.3-11.1)
[2020-03-28] MEDS: *HR* HYDROmorphone (PF) 1 MG/ML SYRINGE IVP PRN ×2 (03:13→09:10)
[2020-03-28 03:16] LABS: Calcium 8.8 mg/dL (8.6-10.3); Potassium 5.1 mEq/L (3.5-5.1)
[2020-03-28] MEDS ORDERED: 0.9 % Sodium Chloride 250 ML IVC PRN (07:36)
[2020-03-28] MEDS ORDERED: Valsartan 80 MG TABLET PO SCH (09:00)
[2020-03-28] MEDS: Apixaban 5 MG TABLET PO SCH (09:09)
[2020-03-28] MEDS: Insulin LISPRO 300 UNITS/3 ML VIAL SQ SCH ×2 (09:42→12:34)
[2020-03-28] MEDS: Sennosides/Docusate Sodium TABLET PO SCH (14:11)
[2020-03-28] MEDS: Cholecalciferol (D-3) 1,000 UNIT (25MCG) TABLET PO SCH (14:11)
[2020-03-28] MEDS: Isosorbide MONOnitrate (24 HR) 30 MG TAB.ER.24H PO SCH (14:11)
[2020-03-28] MEDS: Furosemide 40 MG TABLET PO SCH (14:11)
[2020-03-28] MEDS: allopurinoL 100 MG TABLET PO SCH (14:11)
[2020-03-28] MEDS: Fenofibrate 54 MG TABLET PO SCH (14:13)
[2020-03-28] MEDS: calcitrioL 0.25 MCG CAPSULE PO SCH (14:14)
[2020-03-28] MEDS: Cyanocobalamin (B-12) 1,000 MCG TABLET PO SCH (14:14)
[2020-03-28] MEDS: polyethylene glycoL 3350 17 GM POWD.PACK PO SCH (14:14)
[2020-03-28] MEDS: Metoprolol XL (24 HR) Succ 25 MG TAB.ER.24H PO SCH (14:15)
[2020-03-28 14:28] VITALS: BP 159/80
[2020-03-28] MEDS ORDERED: Pregabalin 50 MG CAPSULE PO SCH (21:00)
== END 2020-03-28 15:30 | disposition home or self-care (01) | DRG 291 ==
LOC: EMEROOARM 21:00 → 2ANU 21:00 → SUATTDRO 03-20 16:28
PROVIDERS: ADMIT Internal Medicine; ATTEND Internal Medicine

== ENCOUNTER 2020-08-01 17:31 | Inpatient (IN) ==
[2020-08-01 18:31] LABS: Basophils % 0.3 %; Eosinophils % 0.5 %; Hematocrit 26.6 % (35.3-44.9); Hemoglobin 8.3 g/dL (11.5-15.4); Immature Granulocytes % 0.5 % (0-4); Lymphocytes # 0.2 K/mcL (0.6-4.6); Lymphocytes % 3.4 %; Mean Corpuscular HGB Conc 31.2 g/dL (31.6-35.5); Mean Corpuscular Hemoglobin 34.6 pg (28.0-33.3); Mean Corpuscular Volume 110.8 fL (83.0-100.0); Mean Platelet Volume 10.6 fL (9.4-12.4); Monocytes # 0.3 K/mcL (0.0-1.3); Monocytes % 5.5 %; Neutrophils # 5.3 K/mcL (1.6-8.9); Platelet Count 103 K/mcL (140-400); Red Cell Distribution Width 17.4 % (11.5-14.5); Segmented Neutrophils % 89.8 %; White Blood Count 5.9 K/mcL (4.3-11.1)
[2020-08-01] MEDS ORDERED: Isovue-370 500 ML BOTTLE IVP ONE (18:57)
[2020-08-01 19:01] LABS: Hypochromasia Present (Not Present)
[2020-08-01] MEDS ORDERED: *HR* LORazepam 1 MG TABLET PO ONE (19:05)
[2020-08-01] MEDS ORDERED: Furosemide 40 MG/4 ML VIAL IVP ONE (19:05)
[2020-08-01 19:14] LABS: Calcium 9.3 mg/dL (8.6-10.3); Potassium 3.3 mEq/L (3.5-5.1); Troponin I 0.05 ng/mL (< 0.04)
[2020-08-01] MEDS ORDERED: Piperacillin/Tazobactam 3.375 GM in 0.9 % Sodium Chloride Mini Bag 100 ML IVPB ONE ×2 (21:13→21:35)
[2020-08-01] MEDS ORDERED: Vancomycin 1,500 MG/265 ML IV.SOLN IVPB ONE (21:34)
[2020-08-01] MEDS ORDERED: Naloxone 0.4 MG/ML INJ IVP PRN (21:51)
[2020-08-02] MEDS: Melatonin 3 MG TABLET PO PRN ×2 (01:01→21:18)
[2020-08-02] MEDS ORDERED: *HR* LORazepam 2 MG/ML VIAL IVP ONE (01:16)
[2020-08-02] MEDS ORDERED: Perflutren Lipid Microsphere 1.3 ML in 0.9 % Sodium Chloride 8.7 ML IVP PRN (01:17)
[2020-08-02 03:19] LABS: Hematocrit 26.7 % (35.3-44.9); Hemoglobin 8.3 g/dL (11.5-15.4); Mean Corpuscular HGB Conc 31.1 g/dL (31.6-35.5); Mean Corpuscular Hemoglobin 35.5 pg (28.0-33.3); Mean Corpuscular Volume 114.1 fL (83.0-100.0); Mean Platelet Volume 10.7 fL (9.4-12.4); Platelet Count 103 K/mcL (140-400); Red Blood Count 2.34 M/mcL (3.82-4.97); Red Cell Distribution Width 17.9 % (11.5-14.5); White Blood Count 6.7 K/mcL (4.3-11.1)
[2020-08-02 03:38] LABS: Albumin 3.9 g/dL (3.5-5.7); Albumin/Globulin Ratio 1.4 (1.1-2.2); Bilirubin,Total 1.4 mg/dL (0.3-1.0); Calcium 9.4 mg/dL (8.6-10.3); Globulin 2.7 g/dL (2.4-3.5); Potassium 3.9 mEq/L (3.5-5.1); Total Protein 6.6 g/dL (6.4-8.9)
[2020-08-02 03:41] LABS: C-Reactive Protein 144 mg/L (Less than 10)
[2020-08-02 03:59] LABS: Ferritin > 1500 ng/mL (10-120)
[2020-08-02] MEDS: Furosemide 40 MG/4 ML VIAL IVP SCH ×2 (10:32→21:15)
[2020-08-02] MEDS: hydrOXYzine pamoate 25 MG CAPSULE PO PRN (13:19)
[2020-08-02] MEDS ORDERED: *HR* Heparin 5,000 UNIT/ML VIAL IVP ONE (15:12)
[2020-08-02] MEDS ORDERED: *HR* Heparin 5,000 UNIT/ML VIAL IVP PRN ×2 (15:56)
[2020-08-02] MEDS ORDERED: Heparin 25,000UNIT/250ML 1/2NS 25,000 UNIT/250 ML IV.SOLN IVC SCH ×2 (16:00)
[2020-08-02] MEDS: Metoprolol XL (24 HR) Succ 25 MG TAB.ER.24H PO SCH (16:34)
[2020-08-02 17:09] LABS: INR 1.6; Prothrombin Time 17.9 Seconds (9.4-12.1)
[2020-08-02] MEDS ORDERED: Cefepime HCl 1,000 MG in Water for inj. (sterile) 10 ML IVP SCH (18:00)
[2020-08-02 18:23] LABS: Activated Partial Thrombo Time 36.1 Seconds (26.0-36.0)
[2020-08-02] MEDS: Piperacillin/Tazobactam 3.375 GM in 0.9 % Sodium Chloride Mini Bag 100 ML IVPB SCH (21:16)
[2020-08-03 02:32] LABS: Eosinophils % 1.1 %; Hemoglobin 7.3 g/dL (11.5-15.4); Mean Corpuscular Volume 114.2 fL (83.0-100.0)
[2020-08-03 02:34] LABS: Basophils % 0.5 %; Eosinophils # 0.1 K/mcL (0.0-0.6); Hematocrit 24.1 % (35.3-44.9); Immature Granulocytes % 0.2 % (0-4); Immature Platelets 5.3 % (1.1-6.1); Lymphocytes # 0.4 K/mcL (0.6-4.6); Lymphocytes % 6.9 %; Mean Corpuscular HGB Conc 30.3 g/dL (31.6-35.5); Mean Corpuscular Hemoglobin 34.6 pg (28.0-33.3); Mean Platelet Volume 11.1 fL (9.4-12.4); Monocytes # 0.2 K/mcL (0.0-1.3); Monocytes % 4.4 %; Neutrophils # 4.8 K/mcL (1.6-8.9); Nucleated Red Blood Cells 0.4 /100 WBC (0); Red Blood Count 2.11 M/mcL (3.82-4.97); Red Cell Distribution Width 18.4 % (11.5-14.5); Segmented Neutrophils % 86.9 %; White Blood Count 5.5 K/mcL (4.3-11.1)
[2020-08-03 02:35] LABS: Heparin anti-factor XA UFH 0.29 IU/mL (0.30-0.70); Platelet Count 92 K/mcL (140-400)
[2020-08-03 02:39] LABS: Activated Partial Thrombo Time 70.6 Seconds (26.0-36.0)
[2020-08-03 02:51] LABS: Calcium 8.4 mg/dL (8.6-10.3); Potassium 4.2 mEq/L (3.5-5.1)
[2020-08-03 03:02] LABS: Estimated Average Glucose 105 mg/dl; Hemoglobin A1C 5.3 %
[2020-08-03 03:20] LABS: Anisocytosis 1+ (Not Present)
[2020-08-03 03:21] LABS: Platelet Estimate Slight Decrease (Normal); Poikilocytosis 1+ (Not Present); Toxic Granulation Present (Not Present)
[2020-08-03] MEDS: Piperacillin/Tazobactam 3.375 GM in 0.9 % Sodium Chloride Mini Bag 100 ML IVPB SCH ×2 (05:29→19:38)
[2020-08-03] MEDS ORDERED: 0.9 % Sodium Chloride 250 ML IVC PRN (08:16)
[2020-08-03] MEDS ORDERED: 0.9 % Sodium Chloride 1,000 ML PRIME SCH (08:30)
[2020-08-03] MEDS ORDERED: Aspirin 81 MG TAB.CHEW PO SCH (09:00)
[2020-08-03] MEDS: Metoprolol XL (24 HR) Succ 25 MG TAB.ER.24H PO SCH (09:03)
[2020-08-03] MEDS: Isosorbide MONOnitrate (24 HR) 30 MG TAB.ER.24H PO SCH (09:03)
[2020-08-03] MEDS: Furosemide 40 MG/4 ML VIAL IVP SCH ×2 (09:05→21:08)
[2020-08-03] MEDS ORDERED: *HR* Heparin 5,000 UNIT/ML VIAL IVP PRN (11:26)
[2020-08-03] MEDS ORDERED: Heparin 25,000UNIT/250ML 1/2NS 25,000 UNIT/250 ML IV.SOLN IVC SCH (11:30)
[2020-08-03] MEDS: *HR* Heparin 5,000 UNIT/ML VIAL IVP PRN (12:20)
[2020-08-03] MEDS: Heparin 25,000UNIT/250ML 1/2NS 25,000 UNIT/250 ML IV.SOLN IVC SCH ×2 (12:21→21:11)
[2020-08-03 18:08] LABS: Hematocrit 23.3 % (35.3-44.9); Hemoglobin 7.3 g/dL (11.5-15.4)
[2020-08-04] MEDS: Piperacillin/Tazobactam 3.375 GM in 0.9 % Sodium Chloride Mini Bag 100 ML IVPB SCH ×2 (05:17→16:56)
[2020-08-04 06:05] LABS: Basophils % 0.2 %; Hematocrit 24.9 % (35.3-44.9); Hemoglobin 7.8 g/dL (11.5-15.4); Immature Granulocytes % 0.9 % (0-4); Lymphocytes # 0.3 K/mcL (0.6-4.6); Lymphocytes % 6.2 %; Mean Corpuscular HGB Conc 31.3 g/dL (31.6-35.5); Mean Corpuscular Hemoglobin 35.9 pg (28.0-33.3); Mean Corpuscular Volume 114.7 fL (83.0-100.0); Mean Platelet Volume 10.5 fL (9.4-12.4); Monocytes # 0.2 K/mcL (0.0-1.3); Monocytes % 4.3 %; Platelet Count 104 K/mcL (140-400); Red Blood Count 2.17 M/mcL (3.82-4.97); Red Cell Distribution Width 18.3 % (11.5-14.5); Segmented Neutrophils % 88.4 %; White Blood Count 4.7 K/mcL (4.3-11.1)
[2020-08-04 06:07] LABS: Neutrophils # 4.2 K/mcL (1.6-8.9)
[2020-08-04 06:25] LABS: Calcium 8.4 mg/dL (8.6-10.3); Potassium 3.5 mEq/L (3.5-5.1)
[2020-08-04 06:32] LABS: Anisocytosis 2+ (Not Present); Macrocytosis Present (Not Present); Platelet Estimate Slight Decrease (Normal); Poikilocytosis 1+ (Not Present)
[2020-08-04] MEDS: *HR* Heparin 5,000 UNIT/ML VIAL IVP PRN ×2 (07:03→16:53)
[2020-08-04] MEDS: Furosemide 40 MG/4 ML VIAL IVP SCH ×2 (09:28→19:54)
[2020-08-04] MEDS: Isosorbide MONOnitrate (24 HR) 30 MG TAB.ER.24H PO SCH (09:28)
[2020-08-04] MEDS: Metoprolol XL (24 HR) Succ 25 MG TAB.ER.24H PO SCH (09:28)
[2020-08-04 16:15] LABS: Heparin anti-factor XA UFH 0.28 IU/mL (0.30-0.70)
[2020-08-04 16:47] LABS: Activated Partial Thrombo Time 71.2 Seconds (26.0-36.0)
[2020-08-04] MEDS: Heparin 25,000UNIT/250ML 1/2NS 25,000 UNIT/250 ML IV.SOLN IVC SCH (22:33)
[2020-08-04] MEDS: Acetaminophen 325 MG TABLET PO PRN (23:29)
[2020-08-05] MEDS: Trolamine Salicylate/Aloe Vera 85 APPL/85 GM TUBE TP PRN ×2 (00:03→05:37)
[2020-08-05 01:52] LABS: Basophils % 0.2 %; Hematocrit 25.7 % (35.3-44.9); Hemoglobin 7.7 g/dL (11.5-15.4); Immature Granulocytes % 1.7 % (0-4); Lymphocytes # 0.4 K/mcL (0.6-4.6); Mean Corpuscular Hemoglobin 34.4 pg (28.0-33.3); Mean Corpuscular Volume 114.7 fL (83.0-100.0); Mean Platelet Volume 10.8 fL (9.4-12.4); Monocytes # 0.2 K/mcL (0.0-1.3); Monocytes % 5.1 %; Platelet Count 104 K/mcL (140-400); Red Blood Count 2.24 M/mcL (3.82-4.97); Red Cell Distribution Width 18.6 % (11.5-14.5); White Blood Count 4.7 K/mcL (4.3-11.1)
[2020-08-05 02:12] LABS: Calcium 8.4 mg/dL (8.6-10.3); Potassium 3.8 mEq/L (3.5-5.1)
[2020-08-05] MEDS: *HR* Heparin 5,000 UNIT/ML VIAL IVP PRN (02:17)
[2020-08-05 02:19] LABS: Anisocytosis 1+ (Not Present); Macrocytosis Present (Not Present); Platelet Estimate Decreased (Normal)
[2020-08-05] MEDS: Piperacillin/Tazobactam 3.375 GM in 0.9 % Sodium Chloride Mini Bag 100 ML IVPB SCH ×2 (05:15→17:42)
[2020-08-05] MEDS: Acetaminophen 325 MG TABLET PO PRN ×2 (05:36→12:07)
[2020-08-05] MEDS: Metoprolol XL (24 HR) Succ 25 MG TAB.ER.24H PO SCH (09:18)
[2020-08-05] MEDS: Isosorbide MONOnitrate (24 HR) 30 MG TAB.ER.24H PO SCH (09:19)
[2020-08-05] MEDS: Furosemide 40 MG/4 ML VIAL IVP SCH ×2 (09:19→21:21)
[2020-08-05] MEDS: Heparin 25,000UNIT/250ML 1/2NS 25,000 UNIT/250 ML IV.SOLN IVC SCH (22:52)
[2020-08-06] MEDS: hydrOXYzine pamoate 25 MG CAPSULE PO PRN (00:43)
[2020-08-06] MEDS: Melatonin 3 MG TABLET PO PRN ×2 (00:43→21:02)
[2020-08-06 04:51] LABS: Hematocrit 24.7 % (35.3-44.9); Mean Corpuscular Volume 116.5 fL (83.0-100.0); Nucleated Red Blood Cells 0.3 /100 WBC (0); Red Blood Count 2.12 M/mcL (3.82-4.97); Red Cell Distribution Width 18.5 % (11.5-14.5); Segmented Neutrophils % 79.7 %
[2020-08-06 04:53] LABS: Basophils % 0.3 %; Eosinophils % 0.2 %; Hemoglobin 7.4 g/dL (11.5-15.4); Immature Granulocytes % 2.6 % (0-4); Immature Platelets 6.8 % (1.1-6.1); Lymphocytes # 0.7 K/mcL (0.6-4.6); Lymphocytes % 11.9 %; Mean Corpuscular Hemoglobin 34.9 pg (28.0-33.3); Monocytes # 0.3 K/mcL (0.0-1.3); Monocytes % 5.3 %; Neutrophils # 4.8 K/mcL (1.6-8.9)
[2020-08-06 04:56] LABS: Heparin anti-factor XA UFH 0.41 IU/mL (0.30-0.70)
[2020-08-06 05:12] LABS: Calcium 8.4 mg/dL (8.6-10.3); Potassium 4.1 mEq/L (3.5-5.1)
[2020-08-06 05:27] LABS: Platelet Count 92 K/mcL (140-400)
[2020-08-06 05:33] LABS: Anisocytosis 1+ (Not Present); Macrocytosis Present (Not Present); Platelet Estimate Decreased (Normal)
[2020-08-06] MEDS: Piperacillin/Tazobactam 3.375 GM in 0.9 % Sodium Chloride Mini Bag 100 ML IVPB SCH (05:56)
[2020-08-06] MEDS ORDERED: 0.9 % Sodium Chloride 250 ML IVC PRN (07:50)
[2020-08-06] MEDS ORDERED: Lidocaine 1% 20 ML MDV ID PRN (07:57)
[2020-08-06] MEDS: Metoprolol XL (24 HR) Succ 25 MG TAB.ER.24H PO SCH (09:44)
[2020-08-06] MEDS: Apixaban 2.5 MG TABLET PO SCH ×2 (09:44→20:33)
[2020-08-06] MEDS: Isosorbide MONOnitrate (24 HR) 30 MG TAB.ER.24H PO SCH (09:44)
[2020-08-06] MEDS: Furosemide 40 MG/4 ML VIAL IVP SCH ×2 (09:45→20:33)
[2020-08-06] MEDS: Insulin LISPRO 300 UNITS/3 ML VIAL SUBQ SCH ×2 (18:23→21:11)
[2020-08-06] MEDS: Amoxicillin/Clavulanate 500 MG TABLET PO SCH (18:26)
[2020-08-07 06:08] LABS: Basophils % 0.3 %; Eosinophils % 0.6 %; Hematocrit 25.3 % (35.3-44.9); Hemoglobin 7.6 g/dL (11.5-15.4); Immature Granulocytes % 2.3 % (0-4); Lymphocytes # 1.2 K/mcL (0.6-4.6); Lymphocytes % 16.8 %; Mean Corpuscular Hemoglobin 34.1 pg (28.0-33.3); Mean Corpuscular Volume 113.5 fL (83.0-100.0); Mean Platelet Volume 11.4 fL (9.4-12.4); Monocytes # 0.5 K/mcL (0.0-1.3); Monocytes % 7.1 %; Neutrophils # 5.2 K/mcL (1.6-8.9); Nucleated Red Blood Cells 0.7 /100 WBC (0); Platelet Count 105 K/mcL (140-400); Red Blood Count 2.23 M/mcL (3.82-4.97); Red Cell Distribution Width 18.5 % (11.5-14.5); Segmented Neutrophils % 72.9 %; White Blood Count 7.1 K/mcL (4.3-11.1)
[2020-08-07 06:21] LABS: Calcium 8.7 mg/dL (8.6-10.3)
[2020-08-07 07:24] LABS: Anisocytosis 1+ (Not Present); Macrocytosis Present (Not Present)
[2020-08-07] MEDS: Cyanocobalamin (B-12) 1,000 MCG TABLET PO SCH (08:34)
[2020-08-07] MEDS: Apixaban 2.5 MG TABLET PO SCH ×2 (08:35→20:14)
[2020-08-07] MEDS: Isosorbide MONOnitrate (24 HR) 30 MG TAB.ER.24H PO SCH (08:35)
[2020-08-07] MEDS: Aspirin 81 MG TAB.CHEW PO SCH (08:35)
[2020-08-07] MEDS: Cholecalciferol (D-3) 1,000 UNIT (25MCG) TABLET PO SCH (08:35)
[2020-08-07] MEDS: Metoprolol XL (24 HR) Succ 25 MG TAB.ER.24H PO SCH (08:35)
[2020-08-07] MEDS: Furosemide 40 MG/4 ML VIAL IVP SCH ×2 (08:35→20:14)
[2020-08-07] MEDS: Insulin LISPRO 300 UNITS/3 ML VIAL SUBQ SCH ×6 (08:36→21:51)
[2020-08-07] MEDS ORDERED: Insulin DETEMIR 100 UNIT/ML X5UNITS SUBQ ONE (12:07)
[2020-08-07] MEDS ORDERED: 0.9 % Sodium Chloride 250 ML IVC PRN (12:53)
[2020-08-07] MEDS: Amoxicillin/Clavulanate 500 MG TABLET PO SCH (18:20)
[2020-08-08] MEDS: Acetaminophen 325 MG TABLET PO PRN (02:39)
[2020-08-08 05:32] LABS: Basophils % 0.4 %; Eosinophils # 0.3 K/mcL (0.0-0.6); Eosinophils % 3.7 %; Hematocrit 26.6 % (35.3-44.9); Hemoglobin 8.3 g/dL (11.5-15.4); Immature Granulocytes % 1.9 % (0-4); Lymphocytes # 1.3 K/mcL (0.6-4.6); Lymphocytes % 15.3 %; Mean Corpuscular HGB Conc 31.2 g/dL (31.6-35.5); Mean Corpuscular Hemoglobin 35.5 pg (28.0-33.3); Mean Corpuscular Volume 113.7 fL (83.0-100.0); Mean Platelet Volume 11.1 fL (9.4-12.4); Monocytes # 0.5 K/mcL (0.0-1.3); Monocytes % 6.3 %; Neutrophils # 6.2 K/mcL (1.6-8.9); Nucleated Red Blood Cells 0.2 /100 WBC (0); Platelet Count 110 K/mcL (140-400); Red Blood Count 2.34 M/mcL (3.82-4.97); Red Cell Distribution Width 18.5 % (11.5-14.5); Segmented Neutrophils % 72.4 %; White Blood Count 8.6 K/mcL (4.3-11.1)
[2020-08-08 05:50] LABS: Calcium 8.8 mg/dL (8.6-10.3)
[2020-08-08 05:55] LABS: Anisocytosis 1+ (Not Present)
[2020-08-08 05:56] LABS: Platelet Estimate Decreased (Normal); Reactive Lymphocytes Present (Not Present)
[2020-08-08] MEDS: Apixaban 2.5 MG TABLET PO SCH ×2 (08:26→19:45)
[2020-08-08] MEDS: Aspirin 81 MG TAB.CHEW PO SCH (08:26)
[2020-08-08] MEDS: Isosorbide MONOnitrate (24 HR) 30 MG TAB.ER.24H PO SCH (08:26)
[2020-08-08] MEDS: Cholecalciferol (D-3) 1,000 UNIT (25MCG) TABLET PO SCH (08:26)
[2020-08-08] MEDS: Furosemide 40 MG/4 ML VIAL IVP SCH ×2 (08:26→20:59)
[2020-08-08] MEDS: Cyanocobalamin (B-12) 1,000 MCG TABLET PO SCH (08:26)
[2020-08-08] MEDS: Metoprolol XL (24 HR) Succ 25 MG TAB.ER.24H PO SCH (08:26)
[2020-08-08] MEDS: Insulin LISPRO 300 UNITS/3 ML VIAL SUBQ SCH ×4 (08:29→20:59)
[2020-08-08] MEDS: Amoxicillin/Clavulanate 500 MG TABLET PO SCH (16:53)
[2020-08-09 06:01] LABS: Basophils % 0.2 %; Hemoglobin 7.9 g/dL (11.5-15.4); Red Cell Distribution Width 18.1 % (11.5-14.5)
[2020-08-09 06:03] LABS: Eosinophils # 0.2 K/mcL (0.0-0.6); Eosinophils % 2.2 %; Hematocrit 24.7 % (35.3-44.9); Immature Granulocytes % 1.2 % (0-4); Immature Platelets 4.3 % (1.1-6.1); Lymphocytes # 0.9 K/mcL (0.6-4.6); Lymphocytes % 10.8 %; Mean Corpuscular Hemoglobin 36.2 pg (28.0-33.3); Mean Corpuscular Volume 113.3 fL (83.0-100.0); Mean Platelet Volume 10.7 fL (9.4-12.4); Monocytes # 0.5 K/mcL (0.0-1.3); Monocytes % 5.8 %; Neutrophils # 6.9 K/mcL (1.6-8.9); Platelet Count 117 K/mcL (140-400); Red Blood Count 2.18 M/mcL (3.82-4.97); Segmented Neutrophils % 79.8 %; White Blood Count 8.6 K/mcL (4.3-11.1)
[2020-08-09 06:23] LABS: Platelet Estimate Slight Decrease (Normal)
[2020-08-09 06:24] LABS: Anisocytosis 1+ (Not Present); Macrocytosis Present (Not Present); Toxic Granulation Present (Not Present)
[2020-08-09] MEDS ORDERED: 0.9 % Sodium Chloride 2,000 ML ONE (06:46)
[2020-08-09 07:00] LABS: Calcium 8.7 mg/dL (8.6-10.3); Potassium 4.3 mEq/L (3.5-5.1)
[2020-08-09] MEDS ORDERED: 0.9 % Sodium Chloride 250 ML IVC PRN (07:34)
[2020-08-09] MEDS ORDERED: *HR* Heparin 10,000 UNIT/10 ML VIAL IV PRN (07:34)
[2020-08-09] MEDS ORDERED: 0.9 % Sodium Chloride 1,000 ML PRIME SCH (07:45)
[2020-08-09] MEDS: Apixaban 2.5 MG TABLET PO SCH ×2 (08:36→19:55)
[2020-08-09] MEDS: Insulin LISPRO 300 UNITS/3 ML VIAL SUBQ SCH ×6 (08:44→20:52)
[2020-08-09] MEDS: Acetaminophen 325 MG TABLET PO PRN (10:02)
[2020-08-09] MEDS: Furosemide 40 MG/4 ML VIAL IVP SCH ×2 (10:51→20:52)
[2020-08-09] MEDS: Cyanocobalamin (B-12) 1,000 MCG TABLET PO SCH (10:51)
[2020-08-09] MEDS: Cholecalciferol (D-3) 1,000 UNIT (25MCG) TABLET PO SCH (10:51)
[2020-08-09] MEDS: Metoprolol XL (24 HR) Succ 25 MG TAB.ER.24H PO SCH (12:10)
[2020-08-09] MEDS: Aspirin 81 MG TAB.CHEW PO SCH (12:10)
[2020-08-09] MEDS: Isosorbide MONOnitrate (24 HR) 30 MG TAB.ER.24H PO SCH (12:10)
[2020-08-09] MEDS: Insulin DETEMIR 100 UNIT/ML X5UNITS SUBQ SCH (12:33)
[2020-08-10 06:14] LABS: Calcium 8.9 mg/dL (8.6-10.3); Potassium 4.5 mEq/L (3.5-5.1)
[2020-08-10] MEDS: Insulin LISPRO 300 UNITS/3 ML VIAL SUBQ SCH ×7 (08:23→20:58)
[2020-08-10] MEDS: Cyanocobalamin (B-12) 1,000 MCG TABLET PO SCH (08:23)
[2020-08-10] MEDS: Cholecalciferol (D-3) 1,000 UNIT (25MCG) TABLET PO SCH (08:23)
[2020-08-10] MEDS: Insulin DETEMIR 100 UNIT/ML X5UNITS SUBQ SCH (08:26)
[2020-08-10] MEDS: Apixaban 2.5 MG TABLET PO SCH ×2 (10:28→20:57)
[2020-08-10] MEDS: Aspirin 81 MG TAB.CHEW PO SCH (10:28)
[2020-08-10] MEDS: Isosorbide MONOnitrate (24 HR) 30 MG TAB.ER.24H PO SCH (11:20)
[2020-08-10] MEDS: Furosemide 40 MG/4 ML VIAL IVP SCH ×2 (11:21→20:58)
[2020-08-10] MEDS: Metoprolol XL (24 HR) Succ 25 MG TAB.ER.24H PO SCH (11:21)
[2020-08-10] MEDS: Acetaminophen 325 MG TABLET PO PRN (11:28)
[2020-08-11] MEDS ORDERED: 0.9 % Sodium Chloride 250 ML IVC PRN (07:06)
[2020-08-11 07:43] LABS: Basophils % 0.4 %; Eosinophils # 0.2 K/mcL (0.0-0.6); Eosinophils % 2.7 %; Hematocrit 22.1 % (35.3-44.9); Hemoglobin 6.8 g/dL (11.5-15.4); Immature Granulocytes % 0.8 % (0-4); Lymphocytes % 12.6 %; Mean Corpuscular HGB Conc 30.8 g/dL (31.6-35.5); Mean Corpuscular Hemoglobin 34.7 pg (28.0-33.3); Mean Corpuscular Volume 112.8 fL (83.0-100.0); Mean Platelet Volume 10.6 fL (9.4-12.4); Monocytes # 0.8 K/mcL (0.0-1.3); Monocytes % 9.7 %; Neutrophils # 5.8 K/mcL (1.6-8.9); Platelet Count 122 K/mcL (140-400); Red Blood Count 1.96 M/mcL (3.82-4.97); Red Cell Distribution Width 18.9 % (11.5-14.5); Segmented Neutrophils % 73.8 %; White Blood Count 7.8 K/mcL (4.3-11.1)
[2020-08-11 07:58] LABS: Magnesium 2.1 mg/dL (1.6-2.6); Potassium 5.2 mEq/L (3.5-5.1)
[2020-08-11 08:16] LABS: Anisocytosis 1+ (Not Present); Macrocytosis Present (Not Present); Platelet Estimate Slight Decrease (Normal)
[2020-08-11 08:21] LABS: Folate 11.8 ng/mL (3.0-16.0)
[2020-08-11] MEDS: Aspirin 81 MG TAB.CHEW PO SCH (09:31)
[2020-08-11] MEDS: Isosorbide MONOnitrate (24 HR) 30 MG TAB.ER.24H PO SCH (09:32)
[2020-08-11] MEDS: Furosemide 40 MG TABLET PO SCH (09:32)
[2020-08-11] MEDS: Metoprolol XL (24 HR) Succ 25 MG TAB.ER.24H PO SCH (09:32)
[2020-08-11] MEDS: Cholecalciferol (D-3) 1,000 UNIT (25MCG) TABLET PO SCH (09:32)
[2020-08-11] MEDS: Cyanocobalamin (B-12) 1,000 MCG TABLET PO SCH (09:33)
[2020-08-11] MEDS: Apixaban 2.5 MG TABLET PO SCH (09:34)
[2020-08-11] MEDS: Insulin DETEMIR 100 UNIT/ML X5UNITS SUBQ SCH (09:47)
[2020-08-11] MEDS: Insulin LISPRO 300 UNITS/3 ML VIAL SUBQ SCH ×7 (09:52→21:03)
[2020-08-11] MEDS ORDERED: Albumin 25% 25gram/100mL 25 GM/100 ML IV.SOLN IVPB PRN (10:30)
[2020-08-11] MEDS ORDERED: 0.9 % Sodium Chloride 250 ML IVC SCH (15:15)
[2020-08-11] MEDS: Acetaminophen 325 MG TABLET PO PRN (16:42)
[2020-08-12 06:04] LABS: Basophils % 0.3 %; Eosinophils # 0.2 K/mcL (0.0-0.6); Eosinophils % 2.9 %; Hematocrit 22.9 % (35.3-44.9); Hemoglobin 7.1 g/dL (11.5-15.4); Immature Granulocytes % 0.9 % (0-4); Lymphocytes # 0.8 K/mcL (0.6-4.6); Lymphocytes % 12.8 %; Mean Corpuscular Hemoglobin 34.5 pg (28.0-33.3); Mean Corpuscular Volume 111.2 fL (83.0-100.0); Mean Platelet Volume 10.8 fL (9.4-12.4); Monocytes # 0.8 K/mcL (0.0-1.3); Monocytes % 12.8 %; Platelet Count 116 K/mcL (140-400); Red Blood Count 2.06 M/mcL (3.82-4.97); Red Cell Distribution Width 22.1 % (11.5-14.5); Segmented Neutrophils % 70.3 %; White Blood Count 5.9 K/mcL (4.3-11.1)
[2020-08-12 06:05] LABS: Neutrophils # 4.2 K/mcL (1.6-8.9)
[2020-08-12 06:23] LABS: Calcium 8.8 mg/dL (8.6-10.3); Phosphorous 4.2 mg/dL (2.7-4.5); Potassium 4.1 mEq/L (3.5-5.1)
[2020-08-12 06:35] LABS: Anisocytosis 1+ (Not Present); Macrocytosis Present (Not Present); Platelet Estimate Normal (Normal); Poikilocytosis 1+ (Not Present)
[2020-08-12] MEDS: Metoprolol XL (24 HR) Succ 25 MG TAB.ER.24H PO SCH (10:03)
[2020-08-12] MEDS: Aspirin 81 MG TAB.CHEW PO SCH (10:03)
[2020-08-12] MEDS: Furosemide 40 MG TABLET PO SCH (10:03)
[2020-08-12] MEDS: Cholecalciferol (D-3) 1,000 UNIT (25MCG) TABLET PO SCH (10:03)
[2020-08-12] MEDS: Cyanocobalamin (B-12) 1,000 MCG TABLET PO SCH (10:03)
[2020-08-12] MEDS: Isosorbide MONOnitrate (24 HR) 30 MG TAB.ER.24H PO SCH (10:04)
[2020-08-12] MEDS: Insulin LISPRO 300 UNITS/3 ML VIAL SUBQ SCH ×7 (10:27→20:02)
[2020-08-12] MEDS: Insulin DETEMIR 100 UNIT/ML X5UNITS SUBQ SCH (10:28)
[2020-08-13 04:58] LABS: Basophils % 0.6 %; Eosinophils # 0.2 K/mcL (0.0-0.6); Eosinophils % 3.1 %; Hematocrit 19.6 % (35.3-44.9); Immature Granulocytes % 0.4 % (0-4); Lymphocytes % 13.4 %; Mean Corpuscular HGB Conc 30.1 g/dL (31.6-35.5); Mean Corpuscular Hemoglobin 33.9 pg (28.0-33.3); Mean Corpuscular Volume 112.6 fL (83.0-100.0); Mean Platelet Volume 11.5 fL (9.4-12.4); Monocytes # 0.9 K/mcL (0.0-1.3); Monocytes % 13.1 %; Neutrophils # 4.9 K/mcL (1.6-8.9); Platelet Count 149 K/mcL (140-400); Red Blood Count 1.74 M/mcL (3.82-4.97); Red Cell Distribution Width 22.4 % (11.5-14.5); Segmented Neutrophils % 69.4 %; White Blood Count 7.1 K/mcL (4.3-11.1)
[2020-08-13 05:03] LABS: Hemoglobin 5.9 g/dL (11.5-15.4)
[2020-08-13 05:08] LABS: Anisocytosis 1+ (Not Present); Macrocytosis Present (Not Present); Platelet Estimate Normal (Normal)
[2020-08-13 05:22] LABS: Calcium 8.6 mg/dL (8.6-10.3); Phosphorous 5.1 mg/dL (2.7-4.5)
[2020-08-13 05:44] LABS: Basophils # 0.1 K/mcL (0.0-0.2); Basophils % 0.8 %; Eosinophils # 0.2 K/mcL (0.0-0.6); Eosinophils % 2.6 %; Hematocrit 23.8 % (35.3-44.9); Immature Granulocytes % 0.5 % (0-4); Lymphocytes # 0.9 K/mcL (0.6-4.6); Lymphocytes % 14.1 %; Mean Corpuscular HGB Conc 31.5 g/dL (31.6-35.5); Mean Corpuscular Hemoglobin 34.6 pg (28.0-33.3); Mean Corpuscular Volume 109.7 fL (83.0-100.0); Monocytes # 0.8 K/mcL (0.0-1.3); Monocytes % 12.1 %; Neutrophils # 4.5 K/mcL (1.6-8.9); Platelet Count 132 K/mcL (140-400); Red Blood Count 2.17 M/mcL (3.82-4.97); Segmented Neutrophils % 69.9 %; White Blood Count 6.5 K/mcL (4.3-11.1)
[2020-08-13 05:46] LABS: Hemoglobin 7.5 g/dL (11.5-15.4)
[2020-08-13] MEDS ORDERED: 0.9 % Sodium Chloride 250 ML IVC PRN (07:50)
[2020-08-13] MEDS: Insulin LISPRO 300 UNITS/3 ML VIAL SUBQ SCH ×7 (09:25→19:45)
[2020-08-13] MEDS: Cholecalciferol (D-3) 1,000 UNIT (25MCG) TABLET PO SCH (09:26)
[2020-08-13] MEDS: Aspirin 81 MG TAB.CHEW PO SCH (09:26)
[2020-08-13] MEDS: Insulin DETEMIR 100 UNIT/ML X5UNITS SUBQ SCH (09:26)
[2020-08-13] MEDS: Cyanocobalamin (B-12) 1,000 MCG TABLET PO SCH (09:26)
[2020-08-13] MEDS: Furosemide 40 MG TABLET PO SCH (10:45)
[2020-08-13] MEDS: Metoprolol XL (24 HR) Succ 25 MG TAB.ER.24H PO SCH (10:45)
[2020-08-13] MEDS: Isosorbide MONOnitrate (24 HR) 30 MG TAB.ER.24H PO SCH (10:46)
[2020-08-13] MEDS: Acetaminophen 325 MG TABLET PO PRN (19:31)
[2020-08-14 03:40] LABS: Basophils % 0.5 %; Eosinophils # 0.1 K/mcL (0.0-0.6); Eosinophils % 2.2 %; Hematocrit 22.5 % (35.3-44.9); Hemoglobin 6.9 g/dL (11.5-15.4); Immature Granulocytes % 0.5 % (0-4); Lymphocytes # 0.7 K/mcL (0.6-4.6); Lymphocytes % 11.7 %; Mean Corpuscular HGB Conc 30.7 g/dL (31.6-35.5); Mean Corpuscular Hemoglobin 34.3 pg (28.0-33.3); Mean Corpuscular Volume 111.9 fL (83.0-100.0); Mean Platelet Volume 10.8 fL (9.4-12.4); Monocytes # 0.7 K/mcL (0.0-1.3); Monocytes % 12.2 %; Neutrophils # 4.4 K/mcL (1.6-8.9); Platelet Count 120 K/mcL (140-400); Red Blood Count 2.01 M/mcL (3.82-4.97); Red Cell Distribution Width 21.6 % (11.5-14.5); Segmented Neutrophils % 72.9 %
[2020-08-14 03:49] LABS: INR 1.3; Prothrombin Time 15.4 Seconds (9.4-12.1)
[2020-08-14 03:51] LABS: Activated Partial Thrombo Time 36.8 Seconds (26.0-36.0)
[2020-08-14 04:03] LABS: Magnesium 1.9 mg/dL (1.6-2.6); Potassium 3.8 mEq/L (3.5-5.1)
[2020-08-14] MEDS: Melatonin 3 MG TABLET PO PRN (04:52)
[2020-08-14] MEDS ORDERED: 0.9 % Sodium Chloride 250 ML ONE (06:01)
[2020-08-14] MEDS: Furosemide 40 MG TABLET PO SCH (08:50)
[2020-08-14] MEDS: Metoprolol XL (24 HR) Succ 25 MG TAB.ER.24H PO SCH (08:50)
[2020-08-14] MEDS: Cyanocobalamin (B-12) 1,000 MCG TABLET PO SCH (08:50)
[2020-08-14] MEDS: Cholecalciferol (D-3) 1,000 UNIT (25MCG) TABLET PO SCH (08:50)
[2020-08-14] MEDS: Isosorbide MONOnitrate (24 HR) 30 MG TAB.ER.24H PO SCH (08:50)
[2020-08-14] MEDS: Aspirin 81 MG TAB.CHEW PO SCH (08:51)
[2020-08-14] MEDS: Insulin DETEMIR 100 UNIT/ML X5UNITS SUBQ SCH (08:52)
[2020-08-14] MEDS: Insulin LISPRO 300 UNITS/3 ML VIAL SUBQ SCH ×6 (08:54→16:44)
[2020-08-14 12:27] VITALS: BP 130/83
[2020-08-14] MEDS: Acetaminophen 325 MG TABLET PO PRN (17:51)
== END 2020-08-14 19:40 | disposition home or self-care (01) | DRG 177 ==
LOC: EMEROOARM 17:31 → 2NENU 17:31 → SUATTDRO 21:48 → 2NENU 22:17 → SUATTDRO 08-03 22:03
PROVIDERS: ADMIT Student in an Organized Health Care Education/Training Program; ATTEND Pharmacist